=== PATIENT | female | born 1995 | race Caucasian/White ===

== ENCOUNTER → 2017-11-30 13:05 | Outpatient (REF) | payer MEDICAID, SELFPAY ==
[2017-12-02 17:14] LABS: Source: Passed Stone
== END ==
LOC: LBN 13:05
PROVIDERS: PCP Nurse Practitioner Family; Visit Provider Nurse Practitioner Family
DX: N20.0 Calculus of kidney (principal)
CPT/HCPCS: 82360

== ENCOUNTER 2018-04-27 18:47 | Emergency (ER) | payer OTHER, SELFPAY ==
[2018-04-27 18:49] VITALS: BP 123/66; PULSE 79; RESP 18; TEMP 36.4; O2SAT 100
--- NOTE | 2018-04-27 18:57 | W.ED.GENAD ---
Discharge Plan Disposition Patient Disposition: HOME Condition: Fair Discharge Details Chief Complaint: EarProblem Clinical Impression: Otitis media Primary Care Provider: Sakina Agustin ED Provider: Julee Dubois Home Meds and New Rx's Prescriptions: New amoxicillin-pot clavulanate [Augmentin] 875-125 mg tablet 1 tab PO BID Qty: 13 RF: 0 Continued levalbuterol tartrate [Xopenex HFA] 45 mcg/actuation HFA aerosol inhaler 2 inh Inhalation Q4H PRN (Reason: shortness of breath or wheezing) Qty: 15 RF: 6 albuterol sulfate 1.25 mg/3 mL solution for nebulization 1.25 mg IH Q4H PRN (Reason: shortness of breath or wheezing) Qty: 90 RF: 4 azithromycin [Zithromax Z-Honorio] 250 mg tablet See Rx Instructions PO .COMPLEX Qty: 6 RF: 0 epinephrine [EpiPen 2-Honorio] 0.3 MG/0.3 ML auto-injector 0.3 mg IM PRN Qty: 1 RF: 1 Advair Diskus 1 EACH blister with device 1 ea Inhalation BID Qty: 3 RF: 3 loratadine 10 MG tablet 10 mg PO QAM Qty: 90 RF: 3 sumatriptan succinate 50 MG tablet 50 mg PO ONCE MDD 200 PRNQty: 30 RF: 0 chlorpromazine 10 MG tablet 10 mg PO Q6H PRN Qty: 30 RF: 0 propranolol 20 MG tablet 20 mg PO TID Qty: 90 RF: 0 Discharge Instructions Instructions: Amoxicillin/Clavulanate Potassium (By mouth), Otitis Media (ED) Additional Instructions: Encourage hydration. Tylenol as needed for discomfort. Augmentin as prescribed for ear infection. Keep upcoming appointment with [facility]. If you develop fevers, ear discharge, increased pain or other new/worsening symptoms please seek care urgently once again. Referrals: Sakina Agustin, [employer]ELOPER [Primary Care Provider] - Medical Decision Making Patient is a 23-year-old female presenting today with chief complaint of left ear pain. Patient is 14 weeks gestation. She reports she has had bleeding throughout the course of her first trimester, this is unchanged at this time. States she is also experienced cramping throughout the first trimester continues into her second. No change in this. No abdominal pain on exam. She reports she was recently treated for pneumonia, finished her course of azithromycin approximately 3 weeks ago. Reports she has a slight lingering cough. Endorses chills. Left ear is notable for bulging tympanic membrane. External ears normal, no mastoid tenderness. Unable to obtain heart rate with Doppler. However, I did use ultrasound, difficulty obtaining a heart rate but was able to see a fluttering heart of the fetus which appeared consistent with gestational age. Patient was able to visualize as well. She has [employer] [employer] appointment beginning of next week. Patient will be treated for otitis media, will be treated with Augmentin. Encourage hydration. We discussed new/worsening symptoms when to seek care urgently once again. Advised to keep upcoming appointment next week. All of her questions and concerns were addressed and she is in agreement this plan. HPI General Mode of arrival: ambulatory. Date/Time Provider Initiated Documentation: 04/27/18 18:55. Limitations to Documentation: no limitations. Information obtained by: patient. History of Present Illness 23 year old F presents to the emergency department with the chief complaint of left ear pain, described as moderate, Quality is described as aching, Patient reports no radiation. Patient started experiencing this day(s) (4) and it has been constant. No relieving factors improve symptom(s), No exacerbating factors reported . Patient notes cough (reports improving cough after recent treatment for pneumonia), fever/chills (endorses chills, no documented fever) and nausea/vomiting (associates with ); denies chest pain, headaches, loss of appetite, rash and shortness of breath. Patient did receive the following treatments prior to arrival, other (Tylenol) Related Data Home Medications Medication Instructions Recorded Confirmed epinephrine [EpiPen 2-Honorio] 0.3 mg IM PRN #1 pack 08/06/12 03/21/18 Advair Diskus 1 ea INHALATION BID #3 dis.syr 02/25/14 03/21/18 loratadine 10 mg PO QAM #90 tab 02/25/14 03/21/18 chlorpromazine 10 mg PO Q6H PRN #30 tab-cap 07/14/17 03/21/18 propranolol 20 mg PO TID #90 tab-cap 07/14/17 03/21/18 sumatriptan succinate 50 mg PO ONCE PRN #30 tab-cap MDD 07/14/17 03/21/18 200 albuterol sulfate 1.25 mg/3 mL 1.25 mg IH Q4H PRN #90 ml 03/21/18 03/21/18 solution for nebulization azithromycin 250 mg tablet See Rx Instructions PO .COMPLEX #6 18 03/21/18 tab levalbuterol HFA 45 mcg/actuation 2 inh INHALATION Q4H PRN #15 gm 03/21/18 03/21/18 aerosol inhaler amoxicillin-pot clavulanate 1 tab PO BID #13 tab 04/27/18 [Augmentin] Previous Rx's Medication Instructions Recorded chlorpromazine 10 mg PO Q6H PRN #30 tab-cap 07/14/17 propranolol 20 mg PO TID #90 tab-cap 07/14/17 albuterol sulfate 1.25 mg/3 mL 1.25 mg IH Q4H PRN #90 ml 03/21/18 solution for nebulization azithromycin 250 mg tablet See Rx Instructions PO .COMPLEX #6 03/21/18 tab levalbuterol HFA 45 mcg/actuation 2 inh INHALATION Q4H PRN #15 gm 03/21/18 aerosol inhaler amoxicillin-pot clavulanate 1 tab PO BID #13 tab 04/27/18 [Augmentin] Allergies Allergy/AdvReac Type Severity Reaction Status Date / Time venom-honey bee Allergy Severe Anaphylaxsi Unverified 04/27/18 19:21 [bee venom (honey bee)] s topiramate Allergy Intermediate Skin Rash Unverified 04/27/18 19:21 amino acids [From Chromimin] Allergy Mild Other (See Unverified 04/27/18 19:21 Comment) chromium [From Chromimin] Allergy Mild Other (See Unverified 04/27/18 19:21 Comment) nickel Allergy Mild Rash Unverified 04/27/18 19:21 Environmental Allergy Mild Watery Uncoded 04/27/18 19:21 eyes, sneezing General Stated Complaint: EarProblem JOSE: 4 Review of Systems Constitutional Reports as per HPI, Reports chills, Denies fever(s), Denies headache(s) and Denies poor appetite Eyes Reports as per HPI, Denies eye discharge and Denies irritation ENT Reports as per HPI, Denies ear discharge, Reports otalgia, Denies headache(s), Denies nasal congestion, Denies nasal discharge, Denies sore throat, Denies throat swelling and Denies tongue swelling Cardiovascular Reports as per HPI, Denies chest pain and Denies dyspnea Respiratory Reports as per HPI, Reports cough and Denies dyspnea Gastrointestinal Reports as per HPI, Denies abdominal pain, Denies change in bowel habits, Reports nausea and Denies vomiting Genitourinary Reports as per HPI, Denies vaginal odor and Reports other (14 week gestation. ) Integumentary/Breasts Reports as per HPI and Denies rash Neurologic Denies headache(s) Allergic/Immunologic Denies throat swelling and Denies tongue swelling [facility] Medical History Alopecia Beta thalassemia Chiari malformation type I Depression GERD (gastroesophageal reflux disease) Tobacco use disorder Ureterolithiasis (11/28/17) Varicella infection Family History Grandmother Personal history of malignant neoplasm Social History number of children: 2 current occupational status: unemployed pets and animals: No Hx Recent Travel: No well-balanced diet: rarely or never frequency: daily Smoking/Tobacco Use Status: Current every day alcohol intake: current alcohol intake frequency: a few times a week substance use type: does not use Exam Const General: cooperative, healthy appearing, comfortable, no acute distress, well developed and well groomed Nutritional Appearance: average body habitus and well nourished Orientation: alert and awake [facility] Head: normal to inspection, normocephalic and atraumatic Ears: hearing grossly normal bilaterally, external ears normal, TM normal on the right, left TM abnormal (bulging left TM. No discharge or defect noted) and mastoids normal General nose exam: external nose normal and nares normal Face and sinus: normal facial exam, sinuses nontender and face symmetric Mouth: oral mucosae normal, lip normal, tongue normal, oropharynx normal and moist mucous membranes Teeth and gingiva: dentition normal Throat: posterior oropharynx normal, tonsils normal and uvula midline Eyes General: appearance normal, both eyes and all related structures Neck Neck: normal visual inspection, full ROM, no lymphadenopathy and no meningeal signs Resp Effort & Inspection: normal respiratory effort, able to speak in complete sentences and no respiratory distress Auscultation: clear to auscultation bilaterally, no rales, no rhonchi and no wheezes Cardio Rate: regular rate Rhythm: regular rhythm Heart Sounds: S1 normal and S2 normal GI Inspection: normal to inspection Skin General skin exam: no rashes or lesions noted Neuro General: alert and awake Cognition: normal cognition Speech: speech normal Gait: normal gait Psych Appearance: grossly normal and well kempt Mental Status: mental status grossly normal Speech and Movement: speech and movement normal Course Vital Signs Temperature 36.4 C L 04/27/18 18:49 Pulse 79 04/27/18 18:49 Respiratory Rate 18 04/27/18 18:49 Blood Pressure 123/66 04/27/18 18:49 Pulse Oximetry 100 04/27/18 18:49 Temperature 36.4 C L 04/27/18 18:49 Temperature Source Temporal Artery Scan 04/27/18 18:49 Pulse 79 04/27/18 18:49 Respiratory Rate 18 04/27/18 18:49 Respiratory Effort Non-Labored 04/27/18 18:52 Blood Pressure 123/66 04/27/18 18:49 Pulse Oximetry 100 04/27/18 18:49 Oxygen Delivery Method Room Air 04/27/18 18:49 Oxygen Flow Rate 0 04/27/18 18:49
[2018-04-27] MEDS: Amoxicillin 875/Clav. 125 TAB PO (19:34)
--- NOTE | 2018-04-27 19:40 | ED.GENADUL_ITS ---
Discharge Plan Disposition Patient Disposition: HOME Condition: Fair Discharge Details Chief Complaint: EarProblem Clinical Impression: Otitis media Primary Care Provider: Sakina Agustin ED Provider: Julee Dubois Home Meds and New Rx's Prescriptions: New amoxicillin-pot clavulanate [Augmentin] 875-125 mg tablet 1 tab PO BID Qty: 13 RF: 0 Continued levalbuterol tartrate [Xopenex HFA] 45 mcg/actuation HFA aerosol inhaler 2 inh Inhalation Q4H PRN (Reason: shortness of breath or wheezing) Qty: 15 RF: 6 albuterol sulfate 1.25 mg/3 mL solution for nebulization 1.25 mg IH Q4H PRN (Reason: shortness of breath or wheezing) Qty: 90 RF: 4 azithromycin [Zithromax Z-Honorio] 250 mg tablet See Rx Instructions PO .COMPLEX Qty: 6 RF: 0 epinephrine [EpiPen 2-Honorio] 0.3 MG/0.3 ML auto-injector 0.3 mg IM PRN Qty: 1 RF: 1 Advair Diskus 1 EACH blister with device 1 ea Inhalation BID Qty: 3 RF: 3 loratadine 10 MG tablet 10 mg PO QAM Qty: 90 RF: 3 sumatriptan succinate 50 MG tablet 50 mg PO ONCE MDD 200 PRNQty: 30 RF: 0 chlorpromazine 10 MG tablet 10 mg PO Q6H PRN Qty: 30 RF: 0 propranolol 20 MG tablet 20 mg PO TID Qty: 90 RF: 0 Discharge Instructions Instructions: Amoxicillin/Clavulanate Potassium (By mouth), Otitis Media (ED) Additional Instructions: Encourage hydration. Tylenol as needed for discomfort. Augmentin as prescribed for ear infection. Keep upcoming appointment with [facility] [employer] [facility] [facility]. If you develop fevers, ear discharge, increased pain or other new/worsening symptoms please seek care urgently once again. Referrals: Sakina Agustin, [employer] [Primary Care Provider] - Medical Decision Making Patient is a 23-year-old female presenting today with chief complaint of left ear pain. Patient is 14 weeks gestation. She reports she has had bleeding throughout the course of her first trimester, this is unchanged at this time. States she is also experienced cramping throughout the first trimester continues into her second. No change in this. No abdominal pain on exam. She reports she was recently treated for pneumonia, finished her course of azithromycin approximately 3 weeks ago. Reports she has a slight lingering cough. Endorses chills. Left ear is notable for bulging tympanic membrane. External ears normal, no mastoid tenderness. Unable to obtain heart rate with Doppler. However, I did use ultrasound, difficulty obtaining a heart rate but was able to see a fluttering heart of the fetus which appeared consistent with gestational age. Patient was able to visualize as well. She has [employer] appointment beginning of next week. Patient will be treated for otitis media, will be treated with Augmentin. Encourage hydration. We discussed new/worsening symptoms when to seek care urgently once again. Advised to keep upcoming appointment next week. All of her questions and concerns were addressed and she is in agreement this plan. HPI General Mode of arrival: ambulatory . Date/Time Provider Initiated Documentation: 04/27/18 18:55 . Limitations to Documentation: no limitations . Information obtained by: patient . History of Present Illness 23 year old F presents to the emergency department with the chief complaint of left ear pain, described as moderate, Quality is described as aching, Patient reports no radiation. Patient started experiencing this day(s) (4) and it has been constant. No relieving factors improve symptom(s), No exacerbating factors reported . Patient notes cough (reports improving cough after recent treatment for pneumonia), fever/chills (endorses chills, no documented fever) and nausea/vomiting (associates with ); denies chest pain, headaches, loss of appetite, rash and shortness of breath. Patient did receive the following treatments prior to arrival, other (Tylenol) Related Data Home Medications Medication Instructions Recorded Confirmed epinephrine [EpiPen 2-Honorio] 0.3 mg IM PRN #1 pack 08/06/12 03/21/18 Advair Diskus 1 ea INHALATION BID #3 dis.syr 02/25/14 03/21/18 loratadine 10 mg PO QAM #90 tab 02/25/14 03/21/18 chlorpromazine 10 mg PO Q6H PRN #30 tab-cap 07/14/17 03/21/18 propranolol 20 mg PO TID #90 tab-cap 07/14/17 03/21/18 sumatriptan succinate 50 mg PO ONCE PRN #30 tab-cap MDD 07/14/17 03/21/18 200 albuterol sulfate 1.25 mg/3 mL 1.25 mg IH Q4H PRN #90 ml 03/21/18 03/21/18 solution for nebulization azithromycin 250 mg tablet See Rx Instructions PO .COMPLEX #6 18 03/21/18 tab levalbuterol HFA 45 mcg/actuation 2 inh INHALATION Q4H PRN #15 gm 03/21/18 03/21/18 aerosol inhaler amoxicillin-pot clavulanate 1 tab PO BID #13 tab 04/27/18 [Augmentin] Previous Rx's Medication Instructions Recorded chlorpromazine 10 mg PO Q6H PRN #30 tab-cap 07/14/17 propranolol 20 mg PO TID #90 tab-cap 07/14/17 albuterol sulfate 1.25 mg/3 mL 1.25 mg IH Q4H PRN #90 ml 03/21/18 solution for nebulization azithromycin 250 mg tablet See Rx Instructions PO .COMPLEX #6 03/21/18 tab levalbuterol HFA 45 mcg/actuation 2 inh INHALATION Q4H PRN #15 gm 03/21/18 aerosol inhaler amoxicillin-pot clavulanate 1 tab PO BID #13 tab 04/27/18 [Augmentin] Allergies Allergy/AdvReac Type Severity Reaction Status Date / Time venom-honey bee Allergy Severe Anaphylaxsi Unverified 04/27/18 19:21 [bee venom (honey bee)] s topiramate Allergy Intermediate Skin Rash Unverified 04/27/18 19:21 amino acids [From Chromimin] Allergy Mild Other (See Unverified 04/27/18 19:21 Comment) chromium [From Chromimin] Allergy Mild Other (See Unverified 04/27/18 19:21 Comment) nickel Allergy Mild Rash Unverified 04/27/18 19:21 Environmental Allergy Mild Watery Uncoded 04/27/18 19:21 eyes, sneezing General Stated Complaint: EarProblem JOSE: 4 Review of Systems Constitutional Reports as per HPI, Reports chills, Denies fever(s), Denies headache(s) and Denies poor appetite Eyes Reports as per HPI, Denies eye discharge and Denies irritation ENT Reports as per HPI, Denies ear discharge, Reports otalgia, Denies headache(s), Denies nasal congestion, Denies nasal discharge, Denies sore throat, Denies throat swelling and Denies tongue swelling Cardiovascular Reports as per HPI, Denies chest pain and Denies dyspnea Respiratory Reports as per HPI, Reports cough and Denies dyspnea Gastrointestinal Reports as per HPI, Denies abdominal pain, Denies change in bowel habits, Reports nausea and Denies vomiting Genitourinary Reports as per HPI, Denies vaginal odor and Reports other (14 week gestation. ) Integumentary/Breasts Reports as per HPI and Denies rash Neurologic Denies headache(s) Allergic/Immunologic Denies throat swelling and Denies tongue swelling [facility] Medical History Alopecia Beta thalassemia Chiari malformation type I Depression GERD (gastroesophageal reflux disease) Tobacco use disorder Ureterolithiasis (11/28/17) Varicella infection Family History Grandmother Personal history of malignant neoplasm Social History number of children: 2 current occupational status: unemployed pets and animals: No Hx Recent Travel: No well-balanced diet: rarely or never frequency: daily Smoking/Tobacco Use Status: Current every day alcohol intake: current alcohol intake frequency: a few times a week substance use type: does not use Exam Const General: cooperative, healthy appearing, comfortable, no acute distress, well developed and well groomed Nutritional Appearance: average body habitus and well nourished Orientation: alert and awake [facility] [place] Head: normal to inspection, normocephalic and atraumatic Ears: hearing grossly normal bilaterally, external ears normal, TM normal on the right, left TM abnormal (bulging left TM. No discharge or defect noted) and mastoids normal General nose exam: external nose normal and nares normal Face and sinus: normal facial exam, sinuses nontender and face symmetric Mouth: oral mucosae normal, lip normal, tongue normal, oropharynx normal and moist mucous membranes Teeth and gingiva: dentition normal Throat: posterior oropharynx normal, tonsils normal and uvula midline Eyes General: appearance normal, both eyes and all related structures Neck Neck: normal visual inspection, full ROM, no lymphadenopathy and no meningeal signs Resp Effort & Inspection: normal respiratory effort, able to speak in complete sentences and no respiratory distress Auscultation: clear to auscultation bilaterally, no rales, no rhonchi and no wheezes Cardio Rate: regular rate Rhythm: regular rhythm Heart Sounds: S1 normal and S2 normal GI Inspection: normal to inspection Skin General skin exam: no rashes or lesions noted Neuro General: alert and awake Cognition: normal cognition Speech: speech normal Gait: normal gait Psych Appearance: grossly normal and well kempt Mental Status: mental status grossly normal Speech and Movement: speech and movement normal Course Vital Signs Temperature 36.4 C L 04/27/18 18:49 Pulse 79 04/27/18 18:49 Respiratory Rate 18 04/27/18 18:49 Blood Pressure 123/66 04/27/18 18:49 Pulse Oximetry 100 04/27/18 18:49 Temperature 36.4 C L 04/27/18 18:49 Temperature Source Temporal Artery Scan 04/27/18 18:49 Pulse 79 04/27/18 18:49 Respiratory Rate 18 04/27/18 18:49 Respiratory Effort Non-Labored 04/27/18 18:52 Blood Pressure 123/66 04/27/18 18:49 Pulse Oximetry 100 04/27/18 18:49 Oxygen Delivery Method Room Air 04/27/18 18:49 Oxygen Flow Rate 0 04/27/18 18:49
== END 2018-04-27 19:38 | disposition home or self-care (01) ==
PROVIDERS: Emergency Provider Physician Assistant; PCP Nurse Practitioner Family
DX: O99.89 Other specified diseases and conditions complicating pregnancy, childbirth and the puerperium (principal); H66.92 Otitis media, unspecified, left ear; Z3A.14 14 weeks gestation of pregnancy
CPT/HCPCS: 99283

== ENCOUNTER 2019-01-15 07:44 | Emergency (ER) | payer MEDICAID, SELFPAY ==
[2019-01-15 07:48] VITALS: BP 117/63; PULSE 70; RESP 16; TEMP 36.6; O2SAT 98
--- NOTE | 2019-01-15 08:08 | W.ED.GENAD ---
Discharge Plan Disposition Patient Disposition: HOME Condition: Stable Discharge Details Chief Complaint: Orthopedic Clinical Impression: Right wrist sprain Primary Care Provider: Sakina Agustin ED Provider: Tong Laboy Home Meds and New Rx's Prescriptions: Continued levalbuterol tartrate [Xopenex HFA] 45 mcg/actuation HFA aerosol inhaler 2 inh Inhalation Q4H PRN (Reason: shortness of breath or wheezing) Qty: 15 RF: 6 albuterol sulfate 1.25 mg/3 mL solution for nebulization 1.25 mg IH Q4H PRN (Reason: shortness of breath or wheezing) Qty: 90 RF: 4 epinephrine [EpiPen 2-Honorio] 0.3 MG/0.3 ML auto-injector 0.3 mg IM PRN Qty: 1 RF: 1 fluticasone propion-salmeterol [Advair Diskus] 1 EACH blister with device 1 ea Inhalation BID Qty: 3 RF: 3 loratadine 10 MG tablet 10 mg PO QAM Qty: 90 RF: 3 escitalopram oxalate [Lexapro] 10 mg tablet 40 mg PO DAILY RF: 0 Discharge Instructions Instructions: Wrist Sprain (ED) Additional Instructions: Immobilized and provided splint for 7 to 14 days time. If you have moderate persistent pain at 10 days time, as we discussed you should have a repeat x-ray. Remove and ice 20 minutes at a time 5-6 times daily. Tylenol as needed for pain. Return for worsening discomfort, numbness of the digits, or any other acute concern. Medical Decision Making 23-year-old female with right wrist pain after fall yesterday at home on outstretched hand She has a swollen and diffusely tender right wrist on exam. Also notable for diminished sensation on the volar surface of the index, ring and fifth digit. In testing with two-point, the patient has difficulty appreciating 2 cm two-point discrimination on unaffected skin as well as affected skin. Her two-point discrimination is 2 cm throughout. Ice placed and patient referred for x-ray. A ring was removed from the fourth digit. No evidence of bony fracture. Will place in a removable Velcro splint. She understands to return for worsening numbness, increasing pain, pain that persist beyond 10 days. She will immobilize, rest, ice the affected joint for 7 to 10 days time. Return precautions discussed. Consistent with right wrist sprain. HPI General Mode of arrival: ambulatory. Date/Time Provider Initiated Documentation: 01/15/19 07:58. Limitations to Documentation: no limitations. Information obtained by: patient. History of Present Illness 23 year old F presents to the emergency department with the chief complaint of Mild right wrist pain, described as moderate, Quality is described as dull, and is localized to the right and upper extremity. Patient reports no radiation. Patient started experiencing this hour(s) and it has been constant. Rest improves symptom(s), Movement worsens symptoms . Patient notes other (Swelling, pain with movement). Patient did receive the following treatments prior to arrival, NSAID Related Data Home Medications Medication Instructions Recorded Confirmed epinephrine [EpiPen 2-Honorio] 0.3 mg IM PRN #1 pack 08/06/12 01/15/19 fluticasone propion-salmeterol 1 ea INHALATION BID #3 dis.syr 02/25/14 01/15/19 [Advair Diskus] loratadine 10 mg PO QAM #90 tab 02/25/14 01/15/19 albuterol sulfate 1.25 mg/3 mL 1.25 mg IH Q4H PRN #90 ml 03/21/18 01/15/19 solution for nebulization levalbuterol tartrate 45 2 inh INHALATION Q4H PRN #15 gm 03/21/18 01/15/19 mcg/actuation aerosol inhaler escitalopram oxalate 10 mg tablet 40 mg PO DAILY 06/26/18 01/15/19 Previous Rx's Medication Instructions Recorded albuterol sulfate 1.25 mg/3 mL 1.25 mg IH Q4H PRN #90 ml 03/21/18 solution for nebulization levalbuterol tartrate 45 2 inh INHALATION Q4H PRN #15 gm 03/21/18 mcg/actuation aerosol inhaler Allergies Allergy/AdvReac Type Severity Reaction Status Date / Time venom-honey bee Allergy Severe Anaphylaxsi Unverified 01/15/19 07:52 [bee venom (honey bee)] s topiramate Allergy Intermediate Skin Rash Unverified 01/15/19 07:52 amino acids [From Chromimin] Allergy Mild Other (See Unverified 01/15/19 07:52 Comment) chromium [From Chromimin] Allergy Mild Other (See Unverified 01/15/19 07:52 Comment) nickel Allergy Mild Rash Unverified 01/15/19 07:52 Environmental Allergy Mild Watery Uncoded 01/15/19 07:52 eyes, sneezing General Stated Complaint: Orthopedic JOSE: 4 Review of Systems Review of Systems Narrative: No other injury. Denies elbow, shoulder, back, neck pain. She has otherwise been well. 4 systems reviewed and negative. [facility] Medical History Alopecia Beta thalassemia Chiari malformation type I Depression GERD (gastroesophageal reflux disease) Tobacco use disorder Ureterolithiasis (11/28/17) (L) UVJ passed spontaneously Varicella infection Age 2 or 3 Family History Grandmother Personal history of malignant neoplasm breast CA Social History Smoking/Tobacco Use Status: Current every day Alcohol Intake: current Alcohol Intake frequency: a few times a week Drug use: Never Substance use type: does not use Number of Children: 2 Pets and animals: No Sexually active: No Current gender identity: female What type of physical activity do you participate in: walking Frequency: daily Do you feel safe at home: Yes Do you feel safe in your relationship?: Yes Exam Narrative Exam Narrative: GEN: awake, alert, oriented 3. Pleasant, well groomed, interactive. HEAD: Normocephalic, atraumatic ENT: Mucous membranes dry EYES: PERRL, EOMI NECK: Full ROM, no KRISSY, no menigismus CHEST/RESP: Nontender CARDIOVASCULAR: RRR, no murmur, rub jania. 2+ Rad pulse bilateral Back: Nontender EXT: Full ROM, range of motion is limited right wrist. The right wrist is swollen, diffusely tender. There is 2+ radial pulse present. There is diminished sensation on the volar pad of the fourth and fifth digit as well as index finger. Otherwise normal sensation. Pain with supination. Neuro: Grossly normal neurologic exam, conversant, interactive. Psych: Speech fluent, thoughts congruent, affect normal Course Vital Signs Vital signs: Vital Signs Temperature 36.6 C 01/15/19 07:48 Pulse 70 01/15/19 07:48 Respiratory Rate 16 01/15/19 07:48 Blood Pressure 117/63 01/15/19 07:48 Pulse Oximetry 98 01/15/19 07:48 Temperature 36.6 C 01/15/19 07:48 Temperature Source Skin 01/15/19 07:48 Pulse 70 01/15/19 07:48 Respiratory Rate 16 01/15/19 07:48 Respiratory Effort 01/15/19 07:55 Blood Pressure 117/63 01/15/19 07:48 Blood Pressure Position Sitting 01/15/19 07:48 Pulse Oximetry 98 01/15/19 07:48 Oxygen Delivery Method Room Air 01/15/19 07:48 Oxygen Flow Rate 0 01/15/19 07:48 Pain Level 8 01/15/19 07:54
--- NOTE | 2019-01-15 08:18 | DI.RAD_ITS ---
EXAM: XR WRIST RT COMPLETE INDICATION: pain after fall. COMPARISON: No exams were available for comparison TECHNIQUE: 2D digital imaging was performed. FINDINGS: Four views were obtained. Carpal alignment is normal. No evidence of fracture. IMPRESSION:
== END 2019-01-15 08:30 | disposition home or self-care (01) ==
PROVIDERS: Emergency Provider Emergency Medicine; PCP Nurse Practitioner Family
DX: S63.501A Unspecified sprain of right wrist, initial encounter (principal); W01.0XXA Fall on same level from slipping, tripping and stumbling without subsequent striking against object, initial encounter
CPT/HCPCS: 29125; 99283; 73110; 99282; L3908

== ENCOUNTER 2019-07-28 13:06 | Emergency (ER) | payer MEDICAID, SELFPAY ==
[2019-07-28 13:15] VITALS: BP 125/85; PULSE 106; RESP 18; TEMP 36.2; O2SAT 99
--- NOTE | 2019-07-28 13:45 | DI.CT_ITS ---
EXAM: CT ABDOMEN PELVIS W CLINICAL HISTORY: right flank and RUQ pain; c/o renal obst/cholecyst TECHNIQUE: Imaging Protocol: Axial computed tomography images with coronal and sagittal reformatted images were created and reviewed CONTRAST MATERIAL: Intravenous: Omnipaque 350 Contrast volume:100 mL Oral: No COMPARISON: UPPER ABD WITHOUT CONTRAST from 06/01/2009 FINDINGS: ABDOMEN: Lung Bases: Normal where visualized. Liver: Diffuse fatty infiltration. No measurable mass. Hepatomegaly. Portal, Superior Mesenteric, and Splenic Veins: Unremarkable. Gallbladder and Biliary Tract: No radiodense calculus or dilation. Pancreas: Normal density, no abnormal calcifications or inflammatory process. Spleen: Normal. Mild splenomegaly. Adrenals: No masses seen. Kidneys: Normal size, contour and axis. No radiodense stones or obstructive uropathy. No masses seen. Abdominal Aorta: Abdominal portion non-dilated. Bowel: No obstruction or bowel wall thickening. Appendix is unremarkable. Peritoneal Cavity: No ascites, collection or mesenteric inflammatory response. Lymph Nodes: Within normal limits. Bones: Unremarkable. Soft Tissues: Unremarkable. PELVIS: Bladder: Symmetric distention, no gross wall thickening. Reproductive Organs: Unremarkable as visualized. Small cysts seen on the right ovary. The largest me asures 2.5 cm. Lymph Nodes: Within normal limits. Bones: Within normal limits. IMPRESSION: 1. No acute abdominal or pelvic process. 2. Fatty infiltration of the liver. Mild hepatosplenomegaly. RADIATION DOSE DELIVERED: Total DLP DATA REPOSITORY: All CT scans at this facility are submitted to the National Radiology Data Registry (NRDR) Dose Index Registry (DIR) with the [employer] ([employer]). RADIATION OPTIMIZATION: All CT scans at this facility use at least one of these dose optimization te chniques: automated exposure control; mA and/or kV adjustment per patient size (includes targeted exa ms where dose is matched to clinical indication); or iterative reconstruction.
[2019-07-28 14:03] LABS: Abs Immature Grans 0.03 k/cumm (0.0-0.09); Absolute Basophil Count 0.03 k/cumm (0.0-0.2); Absolute Eosinophil Count 0.15 k/cumm (0.0-0.7); Absolute Lymphocyte Count 2.06 k/cumm (1.2-3.4); Absolute Monocyte Count 0.88 k/cumm (0.11-0.7); Absolute Neutrophil Count 5.84 k/cumm (1.2-6.7); Basophils % 0.3; Eosinophils % 1.7; HCT 39.4 % (36.0-46.0); Immature Grans % 0.3 %; Lymphocytes % 22.9; Mean Corpuscular Hemoglobin 20.7 pg (27.0-33.0); Mean Corpuscular Volume 62.7 fL (80-95); Mean Platelet Volume 10.6 fL (8.0-11.0); Monocytes % 9.8; Platelet Count 306 x1000/uL (130-400); RBC 6.28 m/cumm (4.00-5.20); RBC Distribution Width 18.7 % (11.7-14.6); White Blood Cell Count 8.99 k/cumm (4.4-10.8)
[2019-07-28] MEDS: Normal Saline 1,000 ML 1000 ML IV (14:10)
[2019-07-28] MEDS: Ondansetron 4 MG/2 ML VIAL IVP (14:12)
[2019-07-28 14:13] LABS: Lactate 1.1 mmol/L (0.6-1.4)
[2019-07-28 14:17] LABS: Bilirubin Negative (Negative); Blood Negative (Negative); Clarity Sl Cloudy (Clear); Glucose Negative (Negative); Ketones Negative (Negative); Leukocyte Esterase Negative (Negative); Nitrite Negative (Negative); Specific Gravity >= 1.030 (1.005-1.025); Urobilinogen 0.2 EU/dL (Up TO 0.2); pH 5.5 (5-8)
[2019-07-28 14:22] LABS: Anisocytosis 1+; Diff Comment RBC Morph Reviewed
[2019-07-28 14:23] LABS: ALT 57 U/L (14-59); AST 30 U/L (15-37); Albumin 3.9 g/dL (3.4-5.0); Alkaline Phosphatase 85 U/L (46-116); Anion Gap 13.2 mmol/L (3-11); BUN 11 mg/dL (7-18); Bilirubin, Total 0.4 mg/dL (0.2-1.0); CO2 22.8 mmol/L (21.0-32.0); Calcium 8.9 mg/dL (8.5-10.1); Chloride 102 mmol/L (98-107); Glucose 99 mg/dL (74-106); Microcytosis 3+; Poikilocytes 1+; Potassium 3.8 mmol/L (3.5-5.1); Sodium 138 mmol/L (136-145)
[2019-07-28] MEDS: Omnipaque 350 MG/ML 100 ML BTL IJ (14:38)
[2019-07-28 14:43] LABS: Bacteria Moderate HPF (Negative); Casts Negative LPF (Negative); Crystals Many Calcium Oxalate HPF (Negative); Epithelial Cells Moderate HPF (Negative); Mucus Moderate (Negative); RBC Negative HPF (0-2); WBC Negative HPF (0-5)
[2019-07-28 14:44] LABS: C & S Indicated? C&S Done As Ordered
--- NOTE | 2019-07-28 14:53 | DI.VRAD_ITS ---
PROCEDURE INFORMATION: Exam: CT Abdomen And Pelvis With Contrast Exam date and time: 07/28/2019 1:57 PM Age: 24 years old Clinical indication: Abdominal pain; Patient HX: Chronic kidney infection, known gallstones TECHNIQUE: Imaging protocol: Computed tomography of the abdomen and pelvis with intravenous contrast. COMPARISON: No relevant prior studies available. FINDINGS: Mild splenomegaly. No definite radiopaque gallstones. Appendix is normal. Otherwise normal appearing solid organs. No intestinal obstruction. No obstructive uropathy. No free fluid. No free air. No inflammatory changes. IMPRESSION: Incidental splenomegaly with no specific etiology identified for the patient's symptoms. Dictated and Authenticated by: Bandar Powell MD. Ordering:MARIJA Anne MD
[2019-07-28 16:05] VITALS: BP 112/61; BP 115/61; BP 137/74; PULSE 78; PULSE 85; PULSE 92
[2019-07-28 16:39] VITALS: BP 137/74; PULSE 76; TEMP 36.6; O2SAT 100
[2019-07-28] MEDS: Ondansetron O.D.T. 4 MG TABEF, 3 TABS/BTL PO (16:41)
--- NOTE | 2019-07-28 16:56 | ED.GENADUL_ITS ---
Discharge Plan Disposition Patient Disposition: HOME Condition: Stable Discharge Details Chief Complaint: GenMedical Clinical Impression: Abdominal pain with vomiting, Acute flank pain Primary Care Provider: Sakina Agustin ED Provider: Dayana Crespo Home Meds and New Rx's Prescriptions: No Action levalbuterol tartrate [Xopenex HFA] 45 mcg/actuation HFA aerosol inhaler 2 inh Inhalation Q4H PRN (Reason: shortness of breath or wheezing) Qty: 15 RF: 6 albuterol sulfate 1.25 mg/3 mL solution for nebulization 1.25 mg IH Q4H PRN (Reason: shortness of breath or wheezing) Qty: 90 RF: 4 epinephrine [EpiPen 2-Honorio] 0.3 MG/0.3 ML auto-injector 0.3 mg IM PRN Qty: 1 RF: 1 fluticasone propion-salmeterol [Advair Diskus] 1 EACH blister with device 1 ea Inhalation BID Qty: 3 RF: 3 loratadine 10 MG tablet 10 mg PO QAM Qty: 90 RF: 3 escitalopram oxalate [Lexapro] 10 mg tablet 40 mg PO DAILY RF: 0 Discharge Instructions Instructions: Abdominal Pain (ED), Flank Pain (ED) Additional Instructions: Drink plenty of fluids. Use Zofran as prescribed for nausea every 8 hours if needed. Continue Keflex as previously prescribed. We will follow-up with urine culture. Rest activities as tolerated. Have stool testing as discussed, drop off sample with lab. Follow-up with outpatient ultrasound. Recheck with PCP for any persistence of your symptoms. Return for any worsening, concerns or alarming symptoms if needed sooner. Medical Decision Making Is a very pleasant 24-year-old patient presenting to the emergency room for complaints of 1-1/2 to 2 weeks of right flank pain. Patient reports she had onset of right flank pain associated with hematuria and chills which lasted approximately 3 to 4 days then she reached out to her primary care doctor who prescribed a course of Bactrim. Patient reports 3-day course of Bactrim fully relieved her symptoms. Patient reports symptomatic relief for several days then had onset of return of right-sided flank pain. Patient reports after 2 days of flank pain she developed a fever greater than 101. Patient reports she had subsequent development of nausea and vomiting. Patient reports several episodes of vomiting in the last 2 days. She did reach out to her PCP who prescribed a course of Keflex. Patient reports she has been unable to hold down the Keflex due to vomiting. Patient does report associated diarrhea described as green and foamy. Patient reports persistent right flank pain which has now radiated toward the right upper quadrant of the abdomen. Patient is very familiar with kidney infections as she reports approximately 3-4 kidney infections per year. Patient reports this is somewhat atypical of her kidney infections due to the vomiting which is present in addition to the right upper quadrant pain. Patient reports she has known gallstones which is been noted on previous imaging studies. Patient questions whether this is related to her gallbladder. Patient reports she is feeling dehydrated as she has vomited for 2 days and has been unable to to hold down fluids. Patient denies associated dysuria, urgency, frequency or hematuria when urinating. Patient does report mild dizziness when standing. Initial evaluation of the patient reveals mild tachycardia on vital signs otherwise vital signs are normal patient is afebrile. Mild dry mucous membranes noted orally. Patient is breathing easily has no increase in respiratory effort. Patient has no wheezing, rhonchi or rales on exam. Patient has mild right CVA tenderness. Patient does have notable right upper quadrant tenderness on exam but lacks peritoneal signs, rebound or guarding. Bowel sounds are present in all 4 quadrants. No significant suprapubic tenderness noted on exam. Given patient's initial presentation we will plan to check CT of her abdomen with IV contrast. We will plan to look for any indication of obstruction of the kidney. Will check urinalysis as well as baseline labs including blood cultures and lactate to be sure there is no evidence of urosepsis given her recent urinary tract infection. We will plan to rehydrate this patient with 1 L of normal saline then recheck vitals. Patient agrees with this plan of care. Patient lacks concern for Covid or exposures. Offered pain medication. Patient declines at this time. Patient drove herself to the emergency room today. EKG performed to provide Zofran IV as patient is on citalopram. Patient's QTC is noted to be 423. Patient has an EKG revealing normal sinus rhythm with a heart rate of 100. No ST segment changes. Will provide patient Zofran for symptomatic relief. Patient's labs reveal no leukocytosis. Patient is elevated red blood cells and is known to have thalassemia. Patient's electrolytes within normal limit. Mild elevation of patient's anion gap. We will plan to rehydrate. Patient's LFTs and bilirubin are normal. Patient's lactate noted to be 1.1. Urinalysis inconsistent with urinary tract infection at this time. We will plan to obtain urine culture with new sample given epithelial cells present. Patient's nausea is improved. CT of abdomen and pelvic reveals FINDINGS: Mild splenomegaly. No definite radiopaque gallstones. Appendix is normal. Otherwise normal appearing solid organs. No intestinal obstruction. No obstructive uropathy. No free fluid. No free air. No inflammatory changes. IMPRESSION: Incidental splenomegaly with no specific etiology identified for the patient's symptoms. Patient has received 1 L of IV fluid, does feel improved. Dizziness is resolved on standing. We will plan to obtain C. difficile to be sure patient's bowel changes are not related to recent antibiotic use. After discussion with the patient she does prefer to take Keflex previously prescribed given her history of kidney infection and similar flank pain she is experiencing. Patient made aware of urinalysis results but recommended urine culture. Patient agrees with this plan of care for follow-up. Given patient's concern of her gallbladder and right upper quadrant pain on exam we will plan to reevaluate with ultrasound tomorrow. Patient agrees with this plan of care. Patient's vital signs improved with hydration. Patient remains afebrile. Patient provided Zofran for symptomatic relief. Patient feels hydrated at this time. Does report some symptomatic relief and is requesting discharge home at this time. Patient made aware of return precautions. The patient was stable and requested discharge. Prior to discharge, my usual and customary return precautions were reviewed with the patient - this included follow-up instructions and reasons to return to the Emergency Department if conditions worsens, does not improve as expected, or other new concerns arise. HPI General Date/Time Provider Initiated Documentation: 07/28/19 13:19 . HPI Narrative: This a 24-year-old patient presenting to the emergency room for complaints of flank pain associated with hematuria as well as chills which began approximately 1-1/2 weeks ago. Patient experienced 3 days of hematuria, right-sided flank pain and had onset of chills. She reached out to her PCP who prescribed a course of Bactrim. Patient was compliant with 3 days of Bactrim which fully relieved her symptoms. Urine became clear in color, had no associated dysuria, flank pain and chills had entirely relieved. Patient reports she was feeling well for approximately 3 to 4 days, patient had return of onset of right flank pain as well as onset of fever in the last 3 days. Patient reports she again reached out to her primary care doctor who prescribed a course of Keflex p.o. P atient picked up the medication yesterday. Tried taking the medication and began vomiting. Patient reports unable to hold down antibiotic due to vomiting. Patient reports persistent febrile sensation. Patient reports persistent right flank pain. Patient does report the flank pain at this time has began to radiate toward the anterior abdomen in the right upper quadrant. Patient denies any cough, difficulty breathing or shortness of breath or wheezing. Denies any chest pain. Denies any headache. She does report mild dizziness is at this time she is feeling quite dehydrated. Patient also is reporting several episodes of vomiting in the last 2 days. Patient is also reporting diarrhea in the last 2 days. Patient reports diarrhea is described as green and foam-like. No significant odor noted. Denies any blood in vomitus or bowel movement. At this time patient is predominantly complaining of right-sided flank pain with radiation to the abdomen as well as dizziness and concern of dehydration. Patient denies any dysuria, urgency or hematuria. Patient is very familiar with pyelonephritis as she has had multiple kidney infections in the past patient estimates approximately 3-4 kidney infections per year. Patient reports this is somewhat atypical of her kidney infections as she is not typically vomiting. Patient denies any obvious covert exposures. Patient reports no family members with similar symptoms. Patient reports a history of known gallstones and is concerned if the radiation of her pain toward her anterior abdomen is related to her gallbladder. Related Data Home Medications Medication Instructions Recorded Confirmed epinephrine [EpiPen 2-Honorio] 0.3 mg IM PRN #1 pack 08/06/12 07/28/19 fluticasone propion-salmeterol 1 ea INHALATION BID #3 dis.syr 02/25/14 07/28/19 [Advair Diskus] loratadine 10 mg PO QAM #90 tab 02/25/14 07/28/19 albuterol sulfate 1.25 mg/3 mL 1.25 mg IH Q4H PRN #90 ml 03/21/18 07/28/19 solution for nebulization levalbuterol tartrate 45 2 inh INHALATION Q4H PRN #15 gm 03/21/18 07/28/19 mcg/actuation aerosol inhaler escitalopram oxalate 10 mg tablet 40 mg PO DAILY 06/26/18 07/28/19 Previous Rx's Medication Instructions Recorded albuterol sulfate 1.25 mg/3 mL 1.25 mg IH Q4H PRN #90 ml 03/21/18 solution for nebulization levalbuterol tartrate 45 2 inh INHALATION Q4H PRN #15 gm 03/21/18 mcg/actuation aerosol inhaler Allergies Allergy/AdvReac Type Severity Reaction Status Date / Time venom-honey bee Allergy Severe Anaphylaxsi Unverified 07/28/19 13:19 [bee venom (honey bee)] s topiramate Allergy Intermediate Skin Rash Unverified 07/28/19 13:19 amino acids [From Chromimin] Allergy Mild Other (See Unverified 07/28/19 13:19 Comment) chromium [From Chromimin] Allergy Mild Other (See Unverified 07/28/19 13:19 Comment) nickel Allergy Mild Rash Unverified 07/28/19 13:19 Environmental Allergy Mild Watery Uncoded 07/28/19 13:19 eyes, sneezing General Stated Complaint: GenMedical JOSE: 3 Review of Systems All systems reviewed & are unremarkable except as noted in HPI and below Constitutional Constitutional: Denies chills, Reports fatigue, Reports fever(s), Denies h eadache(s) and Reports malaise ENT Ears, Nose, Mouth, and Throat: Denies headache(s), Denies sinus pain, Denies sinus pressure and Denies sore throat Cardiovascular Cardiovascular: Denies chest pain, Denies diaphoresis, Denies leg edema and Denies dyspnea Respiratory Respiratory: Denies cough, Denies dyspnea and Denies wheezing Gastrointestinal Gastrointestinal: Reports abdominal pain (Right upper quadrant), Reports diarrhea, Reports nausea and Reports vomiting Genitourinary Genitourinary: Denies hematuria, Denies difficulty voiding, Denies dysuria and Denies urinary urgency Neurologic Neurologic: Denies headache(s) Endocrine Endocrine: Reports fatigue Allergic/Immunologic Allergic/Immunologic: Denies wheezing [facility] Medical History (Updated 07/28/19 @ 16:17 by TESS Amanda) Allergic reaction to bee sting (Inactive) Alopecia (Chronic 03/28/13) Asthma (Chronic 05/23/13) 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) Chiari malformation type I [place]Chronic [place]14/17[place] [facility] [place] no surgery at this time Depression (Chronic) Dyshidrotic eczema (Chronic 02/24/14) Gastroesophageal reflux disease (Chronic 05/23/13) Hiatal hernia; long-term Rx Dexilant Headache (Chronic 05/23/13) Tobacco use disorder (Chronic) Ureterolithiasis (Resolved 11/28/17) (L) UVJ passed spontaneously Varicella infection (Resolved) Age 2 or 3 Social History Smoking/Tobacco Use Status: Current every day Tobacco Type: cigarettes Alcohol Intake: current Alcohol Intake frequency: a few times a week Drug use: Never Substance use type: does not use Number of Children: 2 Pets and animals: No Sexually active: No Current gender identity: female What type of physical activity do you participate in: walking Frequency: daily Do you feel safe at home: Yes Do you feel safe in your relationship?: Yes Exam Narrative Exam Narrative: CONST: Healthy appearing patient, in no acute distress. Mild dry mucous membranes. Alert and oriented. HENMT: Head nomocephalic, normal to inspection. Atraumatic. Hearing grossly normal. External ear canal no erythema or swelling. TM normal bilaterally. Nose normal to inspection. No rhinnorhea. Normal facial exam. Oral mucosa normal. Tounge normal. Dentition normal. Normal posterior oropharynx. Uvula midline. EYES: General normal appearance. Alignment normal. Eyelids normal. Conjunctiva normal. Sclera normal. PERRL. NECK: Normal visual inspection. FROM. No lymphadenopathy. Trachea midline. No Midline tenderness. CHEST: Normal insepection of the chest. RESP: Normal respiratory effort. Speaking full sentences. No cough. No wheezing. No retractions. Clear to auscaltation. Breath sound equal and present bilaterally. CARDIO: No JVD. Normal PMI. Regular Rate. Regular Rhythm. Normal peripheral pulses. GI: Normal inspection of abdomen. No distension. Soft. Mild right upper quadrant tenderness present. Bowel sounds present in all 4 quadrants. No reboun d. No gaurding. No peritoneal signs. MUSCULOSKELETAL: Normal Gait. FROM of all extremities. Distal neurovascularly intact. Sensation intact distally. Back; mild right CVA tenderness present. No left CVA tenderness SKIN: Normal. Dry. No rashes. NEURO: Alert and awake. Speech clear. PSYCH: Normal affect. Cooperative. Course Vital Signs Vital signs: Vital Signs Temperature 36.2 C L 07/28/19 13:15 Pulse 106 H 07/28/19 13:15 Respiratory Rate 18 07/28/19 13:15 Blood Pressure 125/85 07/28/19 13:15 Pulse Oximetry 99 07/28/19 13:15 Temperature 36.6 C 07/28/19 16:39 Pulse 76 07/28/19 16:39 Respiratory Rate 18 07/28/19 13:15 Respiratory Effort Non-Labored 07/28/19 13:21 Respiratory Depth Normal 07/28/19 13:21 Respiratory Pattern Normal 07/28/19 13:21 Blood Pressure 137/74 07/28/19 16:39 Blood Pressure Position Sitting 07/28/19 13:15 Pulse Oximetry 100 07/28/19 16:39 Oxygen Delivery Method Room Air 07/28/19 13:15 Oxygen Flow Rate 0 07/28/19 13:15 Pain Level 7 07/28/19 13:15 Lab/Test Results Lab/Test Results: 07/28/19 16:25 Urine - Voided Urine Culture - Pending 07/28/19 15:50 Stool Clostridioides difficile Screen - Pending 07/28/19 15:20 Blood Blood Culture - Pending 07/28/19 14:50 Blood Blood Culture - Pending Laboratory Tests Range/Units 07/28/19 07/28/19 07/28/19 13:51 13:51 13:51 WBC (4.4-10.8) k/cumm 8.99 RBC (4.00-5.20) m/cumm 6.28 H Hgb (12.0-15.5) g/dL 13.0 Hct (36.0-46.0) % 39.4 MCV (80-95) fL 62.7 L MCH (27.0-33.0) pg 20.7 L MCHC (32.0-36.0) g/dL 33.0 RDW (11.7-14.6) % 18.7 H Plt Count (130-400) x1000/uL 306 MPV (8.0-11.0) fL 10.6 Immature Gran % % 0.3 Neutrophils % 65.0 Lymphocytes % 22.9 Monocytes % 9.8 Eosinophils % 1.7 Basophils % 0.3 Absolute Neutrophils (1.2-6.7) k/cumm 5.84 Absolute Lymphocytes (1.2-3.4) k/cumm 2.06 Absolute Monocytes (0.11-0.7) k/cumm 0.88 H Absolute Eosinophils (0.0-0.7) k/cumm 0.15 Absolute Basophils (0.0-0.2) k/cumm 0.03 Differential Comment Rbc morph reviewed RBC Morphology See below Poikilocytosis 1+ Anisocytosis 1+ Microcytosis 3+ Sodium (136-145) mmol/L 138 Potassium (3.5-5.1) mmol/L 3.8 Chloride (98-107) mmol/L 102 Carbon Dioxide (21.0-32.0) mmol/L 22.8 Anion Gap (3-11) mmol/L 13.2 H BUN (7-18) mg/dL 11 Creatinine (0.55-1.02) mg/dL 0.90 Estimated GFR/1.73 m2 (mL/min/1.73m2) >= 60.00 Glucose (74-106) mg/dL 99 Lactate Cancelled Calcium (8.5-10.1) mg/dL 8.9 Total Bilirubin (0.2-1.0) mg/dL 0.4 AST (15-37) U/L 30 ALT (14-59) U/L 57 Alkaline Phosphatase (46-116) U/L 85 Total Protein (6.4-8.2) g/dL 8.0 Albumin (3.4-5.0) g/dL 3.9 Urine Color (Yellow) Urine Clarity (Clear) Urine pH (5-8) Ur Specific [place] (1.005-1.025) Urine Protein (Negative) mg/dL Urine Ketones (Negative) mg/dL Urine Blood (Negative) Urine Nitrite (Negative) Urine Bilirubin (Negative) Urine Urobilinogen (Up TO 0.2) EU/dL Ur Leukocyte Esterase (Negative) Urine RBC (0-2) HPF Urine WBC (0-5) HPF Ur Epithelial Cells (Negative) HPF Urine Crystals (Negative) HPF Urine Bacteria (Negative) HPF Urine Casts (Negative) LPF Urine Mucus (Negative) Ur Culture Indicated? Urine Glucose (Negative) mg/dL Range/Units 07/28/19 07/28/19 13:58 14:08 WBC (4.4-10.8) k/cumm RBC (4.00-5.20) m/cumm Hgb (12.0-15.5) g/dL Hct (36.0-46.0) % MCV (80-95) fL MCH (27.0-33.0) pg MCHC (32.0-36.0) g/dL RDW (11.7-14.6) % Plt Count (130-400) x1000/uL MPV (8.0-11.0) fL Immature Gran % % Neutrophils % Lymphocytes % Monocytes % Eosinophils % Basophils % Absolute Neutrophils (1.2-6.7) k/cumm Absolute Lymphocytes (1.2-3.4) k/cumm Absolute Monocytes (0.11-0.7) k/cumm Absolute Eosinophils (0.0-0.7) k/cumm Absolute Basophils (0.0-0.2) k/cumm Differential Comment RBC Morphology Poikilocytosis Anisocytosis Microcytosis Sodium (136-145) mmol/L Potassium (3.5-5.1) mmol/L Chloride (98-107) mmol/L Carbon Dioxide (21.0-32.0) mmol/L Anion Gap (3-11) mmol/L BUN (7-18) mg/dL Creatinine (0.55-1.02) mg/dL Estimated GFR/1.73 m2 (mL/min/1.73m2) Glucose (74-106) mg/dL Lactate 1.1 Calcium (8.5-10.1) mg/dL Total Bilirubin (0.2-1.0) mg/dL AST (15-37) U/L ALT (14-59) U/L Alkaline Phosphatase (46-116) U/L Total Protein (6.4-8.2) g/dL Albumin (3.4-5.0) g/dL Urine Color (Yellow) Deanna Urine Clarity (Clear) Sl cloudy Urine pH (5-8) 5.5 Ur Specific [place] (1.005-1.025) >= 1.030 H Urine Protein (Negative) mg/dL 30 H Urine Ketones (Negative) mg/dL Negative Urine Blood (Negative) Negative Urine Nitrite (Negative) Negative Urine Bilirubin (Negative) Negative Urine Urobilinogen (Up TO 0.2) EU/dL 0.2 Ur Leukocyte Esterase (Negative) Negative Urine RBC (0-2) HPF Negative Urine WBC (0-5) HPF Negative Ur Epithelial Cells (Negative) HPF Moderate Urine Crystals (Negative) HPF Many calcium oxalate Urine Bacteria (Negative) HPF Moderate Urine Casts (Negative) LPF Negative Urine Mucus (Negative) Moderate Ur Culture Indicated? C&s done as ordered Urine Glucose (Negative) mg/dL Negative
== END 2019-07-28 18:25 | disposition home or self-care (01) ==
PROVIDERS: Emergency Provider Physician Assistant; PCP Nurse Practitioner Family
DX: R10.11 Right upper quadrant pain (principal); R11.10 Vomiting, unspecified; Z79.899 Other long term (current) drug therapy
CPT/HCPCS: 80053; 87040; 96361; 96374; 99285; 74177; 81003; 81015; 83605; 85025; 87086; 87324; 99284; J2405; J3490

== ENCOUNTER 2020-02-17 09:22 | Emergency (ER) | payer MEDICAID, SELFPAY ==
[2020-02-17 09:29] VITALS: BP 121/69; PULSE 92; RESP 20; TEMP 36.4; O2SAT 100
--- NOTE | 2020-02-17 09:35 | ED.GENADUL_ITS ---
Discharge Plan Disposition Patient Disposition: HOME Condition: Improving Discharge Details Clinical Impression: Colitis Primary Care Provider: Sakina Agustin ED Provider: Krysten Bright Home Meds and New Rx's Prescriptions: New ciprofloxacin HCl 500 mg tablet 500 mg PO BID 7 Days Qty: 14 RF: 0 metronidazole [Flagyl] 500 mg tablet 500 mg PO TID 7 Days Qty: 21 RF: 0 dicyclomine 20 mg tablet 20 mg PO TID PRN (Reason: abdominal pain) Qty: 10 RF: 0 Continued epinephrine [EpiPen 2-Honorio] 0.3 MG/0.3 ML auto-injector 0.3 mg IM PRN Qty: 1 RF: 1 escitalopram oxalate [Lexapro] 10 mg tablet 40 mg PO DAILY RF: 0 albuterol sulfate 1.25 mg/3 mL solution for nebulization 1.25 mg IH Q4H PRN (Reason: shortness of breath or wheezing) Qty: 90 RF: 4 levalbuterol tartrate [Xopenex HFA] 45 mcg/actuation HFA aerosol inhaler 1 - 2 inh Inhalation .Q4-6H PRN (Reason: shortness of breath or wheezing) Qty: 3 RF: 3 fluticasone propion-salmeterol [Advair Diskus] 250-50 mcg/dose blister with device 1 ea Inhalation BID Qty: 3 RF: 3 Discharge Instructions Instructions: Colitis (ED) Additional Instructions: You could very likely have Campylobacter diarrheal illness similar to your children. Your stool culture results could take several days to be finalized to confirm this. Take the antibiotics Cipro and Flagyl as directed until finished. Drink plenty of fluids and get plenty of rest. Alternate tylenol and motrin as needed and directed for pain. Follow-up with your primary care doctor in 1 week. Return to the emergency department with any worsening or new concerning symptoms. Discharge Data Discharge Physician: Krysten Bright Medical Decision Making [id number] -- 24-year-old female with a history of asthma, depression, Chiari malformation, GERD and bilateral salpingectomy presents with fever, abdominal pain and diarrhea for the past 2 days. She is afebrile here. Last dose of Tylenol 3 hours ago. She appears uncomfortable but nontoxic. Her abdomen is soft but tender in the left upper and mid quadrants. No meningeal signs. Differential diagnosis includes viral gastroenteritis, Campylobacter, C. difficile colitis, cholecystitis, diverticulitis, UTI, pyelonephritis. Will place an IV, bolus IV fluids, screening labs, urinalysis and CT abdomen and pelvis and give a dose of Toradol and reassess. 1030 --labs reviewed. White blood cell count 20. Lactate 2. Normal lipase. Patient reassessed and she admitted to some nausea and return of pain. Will give a dose of Phenergan and IV Tylenol and reassess. CT notes infectious versus inflammatory colitis as well as a dilated appendix. CT images reviewed with Dr. Gaytan who feels that this is likely colitis and not acute appendicitis. 1230 --patient reassessed and she was feeling much better but pain is slightly returning. Will give a dose of morphine. Patient states she otherwise feels good to go home. Her mother will be picking her up. She was able to tolerate p.o. Cipro and Flagyl. C. difficile negative. We will send with Cipro and Flagyl for home for colitis and suspected Campylobacter infection. There is an interaction with Carissa and her Lexapro. Advised to follow up with the primary care doctor for re-evaluation. Usual and customary return precautions given prior to discharge. Medical Records Medical records reviewed: Yes I reviewed the patient's medical records. Imaging Data Radiologic Study: Radiologist's impression: CT abdomen and pelvis with IV contrast. 1. Findings consistent with an inflammatory or infectious colitis involving the ascending and transverse colon. 2. Appendix measuring 0.8 cm but no evidence of wall enhancement. Air is seen within the appendix. Acute appendicitis is considered less likely. 3. Hepatosplenomegaly. Appendix steatosis. 4. Left ovarian cysts. Largest measuring 2.5 cm. 5. Findings were discussed to the emergency department on the date of the examination. Lab Data Lab results reviewed: Yes I reviewed the patient's lab results. Labs: 02/17/20 11:20 Urine - Clean Catch Urine Culture - Pending 02/17/20 09:55 Blood Blood Culture - Pending 02/17/20 09:40 Blood Blood Culture - Pending Laboratory Tests Range/Units 02/17/20 02/17/20 02/17/20 09:40 09:40 09:40 WBC (4.4-10.8) 10^3/uL 20.33 H RBC (3.93-5.22) 10^6/uL 5.98 H Hgb (11.2-15.7) g/dL 12.0 Hct (36.0-46.0) % 38.3 MCV (80-95) fL 64.0 L MCH (27.0-33.0) pg 20.1 L MCHC (32.0-36.0) % 31.3 L RDW (11.7-14.6) % 15.4 H Plt Count (130-400) 10^3/uL 286 MPV (8.0-11.0) fL 11.1 H Immature Gran % 0.8 Neutrophils % 84.4 Lymphocytes % 8.7 Monocytes % 5.8 Eosinophils % 0.1 Basophils % 0.2 Nucleated RBC % % 0 Absolute Neutrophils (1.2-6.7) 10^3/uL 17.16 H Absolute Lymphocytes (1.2-3.4) 10^3/uL 1.77 Absolute Monocytes (0.1-0.8) 10^3/uL 1.18 H Absolute Eosinophils (0.0-0.7) 10^3/uL 0.02 Absolute Basophils (0.0-0.2) 10^3/uL 0.04 RBC Morphology See below Polychromasia Present Hypochromasia 1+ Microcytosis 2+ VBG Lactate (0.6-1.4) mmol/L 2.0 H Sodium (136-145) mmol/L 136 Potassium (3.5-5.1) mmol/L 3.7 Chloride (98-107) mmol/L 102 Carbon Dioxide (21.0-32.0) mmol/L 21.3 Anion Gap (3-11) mmol/L 12.7 H BUN (7-18) mg/dL 11 Creatinine (0.55-1.02) mg/dL 1.06 H Estimated GFR/1.73 m2 (mL/min/1.73m2) >= 60.00 Glucose (74-106) mg/dL 112 H Calcium (8.5-10.1) mg/dL 9.0 Total Bilirubin (0.2-1.0) mg/dL 0.6 AST (15-37) U/L 29 ALT (14-59) U/L 71 H Alkaline Phosphatase (46-116) U/L 106 Total Protein (6.4-8.2) g/dL 7.8 Albumin (3.4-5.0) g/dL 3.9 Lipase (73-393) U/L 69 Urine Color (Yellow) Urine Clarity (Clear) Urine pH (5-8) Ur Specific [place] (1.005-1.025) Urine Protein (Negative) mg/dL Urine Ketones (Negative) mg/dL Urine Blood (Negative) Urine Nitrite (Negative) Urine Bilirubin (Negative) Urine Urobilinogen (Up TO 0.2) EU/dL Ur Leukocyte Esterase (Negative) Urine Glucose (Negative) mg/dL Stool Campylobacter PCR Stl C.difficile Tox PCR (Negative) Stool Salmonella PCR Stool Shigella PCR Shiga Toxin (PCR) Range/Units 02/17/20 02/17/20 02/17/20 11:20 11:45 11:45 WBC (4.4-10.8) 10^3/uL RBC (3.93-5.22) 10^6/uL Hgb (11.2-15.7) g/dL Hct (36.0-46.0) % MCV (80-95) fL MCH (27.0-33.0) pg MCHC (32.0-36.0) % RDW (11.7-14.6) % Plt Count (130-400) 10^3/uL MPV (8.0-11.0) fL Immature Gran % Neutrophils % Lymphocytes % Monocytes % Eosinophils % Basophils % Nucleated RBC % % Absolute Neutrophils (1.2-6.7) 10^3/uL Absolute Lymphocytes (1.2-3.4) 10^3/uL Absolute Monocytes (0.1-0.8) 10^3/uL Absolute Eosinophils (0.0-0.7) 10^3/uL Absolute Basophils (0.0-0.2) 10^3/uL RBC Morphology Polychromasia Hypochromasia Microcytosis VBG Lactate (0.6-1.4) mmol/L Sodium (136-145) mmol/L Potassium (3.5-5.1) mmol/L Chloride (98-107) mmol/L Carbon Dioxide (21.0-32.0) mmol/L Anion Gap (3-11) mmol/L BUN (7-18) mg/dL Creatinine (0.55-1.02) mg/dL Estimated GFR/1.73 m2 (mL/min/1.73m2) Glucose (74-106) mg/dL Calcium (8.5-10.1) mg/dL Total Bilirubin (0.2-1.0) mg/dL AST (15-37) U/L ALT (14-59) U/L Alkaline Phosphatase (46-116) U/L Total Protein (6.4-8.2) g/dL Albumin (3.4-5.0) g/dL Lipase (73-393) U/L Urine Color (Yellow) Yellow Urine Clarity (Clear) Clear Urine pH (5-8) 6.0 Ur Specific [place] (1.005-1.025) 1.010 Urine Protein (Negative) mg/dL Negative Urine Ketones (Negative) mg/dL Negative Urine Blood (Negative) Negative Urine Nitrite (Negative) Negative Urine Bilirubin (Negative) Negative Urine Urobilinogen (Up TO 0.2) EU/dL 0.2 Ur Leukocyte Esterase (Negative) Negative Urine Glucose (Negative) mg/dL Negative Stool Campylobacter PCR Cancelled Stl C.difficile Tox PCR (Negative) Negative Stool Salmonella PCR Cancelled Stool Shigella PCR Cancelled Shiga Toxin (PCR) Cancelled HPI General Mode of arrival: ambulatory . Date/Time Provider Initiated Documentation: 02/17/20 09:25 . Limitations to Documentation: no limitations . Information obtained by: patient . HPI Narrative: Patient is a 24-year-old female with a history of asthma, Chiari malformation, depression, GERD and bilateral salpingectomy who presents to the ED with a complaint of fever, diarrhea and abdominal pain for the past 2 days. Patient states her symptoms started with fever 2 days ago with a T-max of 104. She states she has had approximately 13 episodes of watery brown diarrhea. She admits to nausea but denies any vomiting. She states her children were recently diagnosed and treated for Campylobacter diarrhea which she states was told likely due to her dog having this. She also admits to headache and neck pain but denies any ear pain, sore throat, cough, chest pain, shortness of breath, urinary symptoms, recent travel, recent known exposure to coronavirus or recent antibiotics. Related Data Home Medications Medication Instructions Recorded Confirmed epinephrine [EpiPen 2-Honorio] 0.3 mg IM PRN #1 pack 08/06/12 02/17/20 escitalopram oxalate 10 mg tablet 40 mg PO DAILY 06/26/18 02/17/20 albuterol sulfate 1.25 mg/3 mL 1.25 mg IH Q4H PRN #90 ml 09/09/19 02/17/20 solution for nebulization fluticasone 250 mcg-salmeterol 50 1 ea INHALATION BID #3 unit 09/09/19 02/17/20 mcg/dose blistr powdr for inhalation levalbuterol tartrate 45 1 - 2 inh INHALATION .Q4-6H PRN #3 09/09/19 02/17/20 mcg/actuation aerosol inhaler unit ciprofloxacin HCl 500 mg PO BID 7 Days #14 tab 02/17/20 dicyclomine 20 mg PO TID PRN #10 tab 02/17/20 metronidazole [Flagyl] 500 mg PO TID 7 Days #21 tab 02/17/20 Previous Rx's Medication Instructions Recorded albuterol sulfate 1.25 mg/3 mL 1.25 mg IH Q4H PRN #90 ml 09/09/19 solution for nebulization fluticasone 250 mcg-salmeterol 50 1 ea INHALATION BID #3 unit 09/09/19 mcg/dose blistr powdr for inhalation levalbuterol tartrate 45 1 - 2 inh INHALATION .Q4-6H PRN #3 09/09/19 mcg/actuation aerosol inhaler unit ciprofloxacin HCl 500 mg PO BID 7 Days #14 tab 02/17/20 dicyclomine 20 mg PO TID PRN #10 tab 02/17/20 metronidazole [Flagyl] 500 mg PO TID 7 Days #21 tab 02/17/20 Allergies Allergy/AdvReac Type Severity Reaction Status Date / Time venom-honey bee Allergy Severe Anaphylaxsi Unverified 02/17/20 09:33 [bee venom (honey bee)] s topiramate Allergy Intermediate Skin Rash Unverified 02/17/20 09:33 amino acids [From Chromimin] Allergy Mild Other (See Unverified 02/17/20 09:33 Comment) chromium [From Chromimin] Allergy Mild Other (See Unverified 02/17/20 09:33 Comment) nickel Allergy Mild Rash Unverified 02/17/20 09:33 Environmental Allergy Mild Watery Uncoded 02/17/20 09:33 eyes, sneezing General Stated Complaint: Abd Prob JOSE: 3 Review of Systems All systems reviewed & are unremarkable except as noted in HPI and below Constitutional Constitutional: Reports as per HPI, Denies chills, Reports fatigue, Reports fever(s), Reports headache(s) and Reports poor appetite Eyes Eyes: Denies blurry vision ENT Ears, Nose, Mouth, and Throat: Denies dizziness, Reports headache(s), Denies sore throat and Denies throat swelling Cardiovascular Cardiovascular: Denies chest pain and Denies dyspnea Respiratory Respiratory: Denies cough and Denies dyspnea Gastrointestinal Gastrointestinal: Reports abdominal pain, Reports diarrhea and Denies vomiting Genitourinary Genitourinary: Denies hematuria and Denies dysuria Musculoskeletal Musculoskeletal: Denies back pain and Denies numbness Integumentary/Breasts Skin/Breast: Denies lesions and Denies rash Neurologic Neurologic: Denies dizziness, Reports headache(s), Denies localized weakness and Denies numbness Endocrine Endocrine: Reports fatigue Allergic/Immunologic Allergic/Immunologic: Denies throat swelling [facility] Medical History (Updated 02/17/20 @ 12:40 by Krysten Bright DO) Allergic reaction to bee sting Alopecia (03/28/13) Asthma (05/23/13) 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) Chiari malformation type I (07/14/17) [facility] [place] Neurosurgery consult: no surgery at this time Depression Dyshidrotic eczema (02/24/14) Gastroesophageal reflux disease (05/23/13) Hiatal hernia; long-term Rx Dexilant Headache (05/23/13) Tobacco use disorder Ureterolithiasis (11/28/17) (L) UVJ passed spontaneously Varicella infection Age 2 or 3 Surgical History (Updated 02/17/20 @ 10:32 by Krysten rBight DO) H/O bilateral salpingectomy Family History Grandmother Personal history of malignant neoplasm breast CA Social History Smoking/Tobacco Use Status: Current every day Tobacco Type: cigarettes Smoking risk assessment performed?: Yes Alcohol Intake: current Alcohol Intake frequency: holidays/special occasions only Drug use: Never Substance use type: does not use Number of Children: 2 Pets and animals: No Sexually active: No Current gender identity: female What type of physical activity do you participate in: walking Frequency: daily Do you feel safe at home: Yes Do you feel safe in your relationship?: Yes Exam Const General: cooperative, uncomfortable and no acute distress Orientation: alert, awake and oriented x3 HENMT Head: normal to inspection Face and sinus: normal facial exam Eyes General: appearance normal, both eyes and all related structures EOM: EOM intact bilaterally Neck Neck: normal visual inspection and No submandibular swelling Lymphatic: no lymphadenopathy noted Chest Chest: normal inspection of the chest and no tenderness Resp Effort & Inspection: normal respiratory effort and able to speak in complete sentences Auscultation: clear to auscultation bilaterally Cardio Rate: regular rate Rhythm: regular rhythm GI Inspection: obesity Palpation: soft, not firm, not rigid and tender (L mid abdomen) in the LUQ Auscultation: normal bowel sounds Skin General skin exam: no rashes or lesions noted Neuro General: patient alert, patient awake and patient oriented x3 Cognition: normal cognition Speech: speech normal Motor: muscle tone normal throughout Sensory Exam: no sensory deficits noted Extrem General: normal to inspection, full ROM, capillary refill normal, no calf tenderness bilaterally and no edema Psych Appearance: grossly normal Mental Status: mental status grossly normal Speech and Movement: speech and movement normal Affect: normal affect Course Vital Signs Vital signs: Vital Signs Temperature 97.5 F L 02/17/20 09:29 Pulse 92 H 02/17/20 09:29 Respiratory Rate 20 02/17/20 09:29 Blood Pressure 121/69 02/17/20 09:29 Pulse Oximetry 100 02/17/20 09:29 Temperature 97.5 F L 02/17/20 09:29 Temperature Source Skin 02/17/20 09:29 Pulse 92 H 02/17/20 09:29 Respiratory Rate 20 02/17/20 09:29 Respiratory Effort Non-Labored 02/17/20 09:34 Blood Pressure 121/69 02/17/20 09:29 Blood Pressure Position Sitting 02/17/20 09:29 Pulse Oximetry 100 02/17/20 09:29 Oxygen Delivery Method Room Air 02/17/20 09:29 Oxygen Flow Rate 0 02/17/20 09:29 Pain Level 7 02/17/20 09:29
[2020-02-17 10:01] LABS: Abs Immature Grans 0.16 10^3/uL (0.0-0.06); Absolute Monocyte Count 1.18 10^3/uL (0.1-0.8); Basophils % 0.2; Eosinophils % 0.1; HCT 38.3 % (36.0-46.0); Immature Grans % 0.8; Lymphocytes % 8.7; MCH 20.1 pg (27.0-33.0); MCHC 31.3 % (32.0-36.0); MPV 11.1 fL (8.0-11.0); Monocytes % 5.8; Neutrophils % 84.4; Nucleated RBC 0 %; Platelet Count 286 10^3/uL (130-400); RBC 5.98 10^6/uL (3.93-5.22); RDW 15.4 % (11.7-14.6); RDW-SD 32.9 fL; WBC 20.33 10^3/uL (4.4-10.8)
[2020-02-17] MEDS: Normal Saline 1,000 ML 1000 ML IV ×2 (10:07→11:33)
[2020-02-17] MEDS: Ketorolac 30 MG/ML VIAL IVP (10:07)
[2020-02-17 10:09] LABS: Absolute Basophil Count 0.04 10^3/uL (0.0-0.2); Absolute Eosinophil Count 0.02 10^3/uL (0.0-0.7); Absolute Lymphocyte Count 1.77 10^3/uL (1.2-3.4); Absolute Neutrophil Count 17.16 10^3/uL (1.2-6.7)
--- NOTE | 2020-02-17 10:15 | DI.CT_ITS ---
EXAM: CT ABDOMEN PELVIS W CLINICAL HISTORY: L sided abdominal pain, r/o diverticulitis,colitis TECHNIQUE: Imaging Protocol: Axial computed tomography images with coronal and sagittal reformatted images were created and reviewed CONTRAST MATERIAL: Intravenous: Omnipaque 350 Contrast volume:100 mL Oral: No COMPARISON: CT CT ABDOMEN PELVIS W from 07/28/2019 FINDINGS: ABDOMEN: Lung Bases: There is a 4 mm triangular nodule associated with the right major fissure most consistent with an intraparenchymal lymph node. Liver: There is diffuse decreased attenuation of the liver consistent with fatty infiltration. No stefania surable mass. The liver measures 24 cm in length. Portal, Superior Mesenteric, and Splenic Veins: Unremarkable. Gallbladder and Biliary Tract: No radiodense calculus or dilation. Pancreas: Normal density, no abnormal calcifications or inflammatory process. Spleen: The spleen measures 15 cm in length. Adrenals: No masses seen. Kidneys: Normal size, contour and axis. No radiodense stones or obstructive uropathy. No masses seen. Abdominal Aorta: Abdominal portion non-dilated. Bowel: No evidence of bowel obstruction. There is concentric moderate bowel wall thickening beginning in the ascending colon and extending into the mid transverse colon. Pericolonic inflammatory changes are present. No abscess or free air. The appendix measures 0.8 cm in diameter. No wall enhancement i s seen. There is air seen within the appendix. Peritoneal Cavity: Mild pericolonic inflammatory changes seen around the ascending colon and transver se colon proximally. No pneumoperitoneum. No ascites. Lymph Nodes: There are mildly enlarged lymph nodes seen in the right lower quadrant which are likely reactive. Bones: Mild degenerative changes. Soft Tissues: Unremarkable. PELVIS: Bladder: Symmetric distention, no gross wall thickening. Reproductive Organs: Left ovarian cysts are present. The largest measures 2.5 cm. Lymph Nodes: Please see above. Bones: Mild degenerative changes. IMPRESSION: 1. Findings consistent with an inflammatory infectious colitis involving the ascending and transverse colon. 2. Appendix measuring 0.8 cm but no evidence of wall enhancement. Air is seen within the appendix. Ac [place] appendicitis is considered less likely. 3. Hepatosplenomegaly. Hepatic steatosis. 4. Left ovarian cysts. The largest measures 2.5 cm. 5. Findings were discussed with the emergency department on the date of the examination. RADIATION DOSE DELIVERED: 1,646.09mGy.cm Total DLP DATA REPOSITORY: All CT scans at this facility are submitted to the National Radiology Data Registry (NRDR) Dose Index Registry (DIR) with the [employer] ([employer]). RADIATION OPTIMIZATION: All CT scans at this facility use at least one of these dose optimization te chniques: automated exposure control; mA and/or kV adjustment per patient size (includes targeted exa ms where dose is matched to clinical indication); or iterative reconstruction.
[2020-02-17 10:21] LABS: ALT 71 U/L (14-59); AST 29 U/L (15-37); Albumin 3.9 g/dL (3.4-5.0); Alkaline Phosphatase 106 U/L (46-116); Anion Gap 12.7 mmol/L (3-11); BUN 11 mg/dL (7-18); Bilirubin, Total 0.6 mg/dL (0.2-1.0); CO2 21.3 mmol/L (21.0-32.0); CREATININE 1.06 mg/dL (0.55-1.02); Chloride 102 mmol/L (98-107); Glucose 112 mg/dL (74-106); Potassium 3.7 mmol/L (3.5-5.1); Sodium 136 mmol/L (136-145); Total Protein 7.8 g/dL (6.4-8.2)
[2020-02-17 10:23] LABS: Diff Comment RBC Morph Reviewed; Hypochromasia 1+; Microcytosis 2+; Polychromasia Present
[2020-02-17 10:32] LABS: Lipase 69 U/L (73-393)
[2020-02-17] MEDS: Omnipaque 350 MG/ML 100 ML BTL IV (10:55)
[2020-02-17] MEDS: Normal Saline - Diluent 50 ML VIAL IV (10:59)
[2020-02-17 11:23] VITALS: BP 113/64; PULSE 61; RESP 16; TEMP 36.3; O2SAT 99
[2020-02-17 11:29] LABS: Bilirubin Negative (Negative); Blood Negative (Negative); Clarity Clear (Clear); Glucose Negative (Negative); Ketones Negative (Negative); Leukocyte Esterase Negative (Negative); Nitrite Negative (Negative); Urobilinogen 0.2 EU/dL (Up TO 0.2)
[2020-02-17 11:30] VITALS: BP 119/57; PULSE 84; RESP 16; O2SAT 100
[2020-02-17] MEDS: ACETAMINOPHEN 1,000 MG/100 ML BTL 400 MG IVPB (12:05)
[2020-02-17 12:36] LABS: C Diff PCR Negative (Negative)
[2020-02-17] MEDS: metroNIDAZOLE 500 MG TAB PO (12:49)
[2020-02-17] MEDS: Ciprofloxacin 500 MG TAB PO (12:49)
[2020-02-17 12:59] VITALS: BP 123/75; PULSE 93; RESP 18; TEMP 36.7; O2SAT 100
--- NOTE | 2020-02-20 19:51 | ED.FU.B_ITS ---
Lab called to state that patient's stool culture is positive for Campylobacter jejuni. Discussed with lab and due to computer issues with [employer], lab results not yet accessible within the chart. Patient was called at home and notified of her result which we had previously discussed was likely the etiology on her recent ED visit. She stated she was feeling slightly better. She was advised to return here with any concerns.
[2020-02-21 16:38] LABS: Misc Referral (VDH) See Comments
== END 2020-02-17 13:47 | disposition home or self-care (01) ==
PROVIDERS: Emergency Provider Physician Assistant; PCP Nurse Practitioner Family
DX: K52.89 Other specified noninfective gastroenteritis and colitis (principal); R50.9 Fever, unspecified; R10.12 Left upper quadrant pain
CPT/HCPCS: 36415; 80053; 83690; 87040; 87493; 87505; 96361; 96365; 96367; 96375; 99285; 74177; 81003; 83605; 85025; 87086; J0131; J1885; J3490

== ENCOUNTER 2020-08-03 12:53 | Outpatient (CLI) | payer MEDICAID, SELFPAY ==
--- NOTE | 2020-08-03 09:15 | DI.RAD_ITS ---
Exam(s) XR KNEE RT 3V AP,LAT,SCOTT EXAM: XR KNEE RT 3V AP,LAT,SCOTT CLINICAL HISTORY: Pain swelling R knee; remote h/o ligamentous injury,[id number]. TECHNIQUE: 2D digital imaging was performed. COMPARISON: No previous. FINDINGS: BONES: No acute fracture is present. No bony destructive lesion is seen. JOINTS: The knee is normally aligned. No joint effusion is seen. SOFT TISSUE: Normal. IMPRESSION: Unremarkable radiographs of the right knee. DATA REPOSITORY: RADIATION DOSE DELIVERED:
== END 2020-08-03 13:13 ==
PROVIDERS: PCP Nurse Practitioner Family; Visit Provider Nurse Practitioner Family
DX: M25.561 Pain in right knee (principal); G89.29 Other chronic pain
CPT/HCPCS: 73562

== ENCOUNTER 2020-11-22 21:16 | Emergency (ER) | payer MEDICAID, SELFPAY ==
--- NOTE | 2020-11-22 21:15 | DI.RAD_ITS ---
Exam(s) XR HAND RT COMPLETE EXAM: XR HAND RT COMPLETE CLINICAL HISTORY: Trauma, Swelling, R/O Fracture. TECHNIQUE: 2D digital imaging was performed. COMPARISON: CR RIGHT HAND COMPLETE from 09/01/2009 FINDINGS: No evidence fracture or dislocation. No radiopaque foreign body. No osseous lesions nor erosions. IMPRESSION: No significant findings. DATA REPOSITORY: RADIATION DOSE DELIVERED:
[2020-11-22 21:20] VITALS: BP 141/76; PULSE 90; RESP 18; TEMP 36.5; O2SAT 99
--- NOTE | 2020-11-22 21:31 | ED.GENADUL_ITS ---
Discharge Plan Disposition Patient Disposition: HOME Condition: Stable Discharge Details Clinical Impression: Sprain and strain of right hand Primary Care Provider: Sakina Agustin ED Provider: Imani Botello Home Meds and New Rx's Prescriptions: Continued buspirone 15 mg tablet 15 mg PO BID Qty: 180 RF: 3 epinephrine [EpiPen 2-Honorio] 0.3 MG/0.3 ML auto-injector 0.3 mg IM PRN Qty: 1 RF: 1 albuterol sulfate 1.25 mg/3 mL solution for nebulization 1.25 mg IH Q4H PRN (Reason: shortness of breath or wheezing) Qty: 90 RF: 4 albuterol sulfate 90 mcg/actuation HFA aerosol inhaler 1 - 2 puff inhalation Q4H PRN (Reason: shortness of breath or wheezing) Qty: 3 RF: 3 buprenorphine-naloxone [Suboxone] 8-2 mg film 2 film sublingual DAILY RF: 0 escitalopram oxalate 20 mg tablet 40 mg PO DAILY Qty: 180 RF: 3 Discharge Instructions Instructions: Hand Sprain (ED) Additional Instructions: The x-rays today show no evidence of a broken bone. Rest, ice, compression, elevation. Please take Tylenol or Ibuprofen with food every 4-6 hours as needed for pain and swelling. Follow up with primary care provider in 3-5 days. Return to ED sooner if any worsening or concerns. Increase oral fluids. Referrals: Sakina Agustin NP [Primary Care Provider] - Discharge Data Discharge Date/Time-TO BE ENTERED AT DEPARTURE: 11/22/20 22:10 Medical Decision Making 25-year-old female presents with right hand injury after punching a wall prior to arrival. X-ray right hand ordered. TECHNIQUE: Imaging protocol: XR Right hand. Views: 3 or more views. COMPARISON: CR XR WRIST RT COMPLETE 01/15/2019 8:10 AM FINDINGS: Bones/joints: Normal. Soft tissues: Normal. IMPRESSION: No acute fracture. Thank you for allowing us to participate in the care of your patient. Dictated and Authenticated by: Vicente Christensen MD Hector wrap applied instructed on rest ice compression elevation and alternating Tylenol and ibuprofen. Patient remained hemodynamically stable throughout stay. This text was generated using [employer] system, please disregard any oddities of phrase or misspellings. HPI General Mode of arrival: ambulatory . Date/Time Provider Initiated Documentation: 11/22/20 21:20 . Limitations to Documentation: no limitations . Information obtained by: patient . HPI Narrative: 26 year old female Patient presents to the ER chief complaint of right hand pain and swelling after punching a garage wall which occurred 1 hour prior to arrival. She reports increased pain and swelling and some numbness tingling which radiates up her arm. Alleviating factors include immobilization and cold therapy. She has no obvious deformity, however she does have some right hand swelling. Here for an x-ray, Offered tylenol or Ibuprofen which patient declined at this time. Robert blum reports that she applied ice prior to arrival. No other injuries or complaints at this time. Related Data Home Medications Medication Instructions Recorded Confirmed epinephrine [EpiPen 2-Honorio] 0.3 mg IM PRN #1 pack 08/06/12 11/22/20 albuterol sulfate 1.25 mg/3 mL 1.25 mg IH Q4H PRN #90 ml 09/09/19 11/22/20 solution for nebulization albuterol sulfate 90 mcg/actuation 1 - 2 puff INHALATION Q4H PRN #3 02/24/20 11/22/20 aerosol inhaler unit buprenorphine 8 mg-naloxone 2 mg 2 film SUBLINGUAL DAILY 06/26/20 11/22/20 sublingual film buspirone 15 mg tablet 15 mg PO BID #180 tab 07/31/20 11/22/20 escitalopram oxalate 20 mg tablet 40 mg PO DAILY #180 tab 10/06/20 11/22/20 Previous Rx's Medication Instructions Recorded albuterol sulfate 1.25 mg/3 mL 1.25 mg IH Q4H PRN #90 ml 09/09/19 solution for nebulization albuterol sulfate 90 mcg/actuation 1 - 2 puff INHALATION Q4H PRN #3 02/24/20 aerosol inhaler unit buspirone 15 mg tablet 15 mg PO BID #180 tab 07/31/20 escitalopram oxalate 20 mg tablet 40 mg PO DAILY #180 tab 10/06/20 Allergies Allergy/AdvReac Type Severity Reaction Status Date / Time venom-honey bee Allergy Severe Anaphylaxsi Unverified 11/22/20 21:25 [bee venom (honey bee)] s topiramate Allergy Intermediate Skin Rash Unverified 11/22/20 21:25 amino acids [From Chromimin] Allergy Mild Other (See Unverified 11/22/20 21:25 Comment) chromium [From Chromimin] Allergy Mild Other (See Unverified 11/22/20 21:25 Comment) nickel Allergy Mild Rash Unverified 11/22/20 21:25 trazodone Allergy Unknown unknown Verified 11/22/20 21:25 Environmental Allergy Mild Watery Uncoded 11/22/20 21:25 eyes, sneezing General Stated Complaint: Orthopedic JOSE: 4 Review of Systems All systems reviewed & are unremarkable except as noted in HPI and below Musculoskeletal Musculoskeletal: Reports arthralgias (Right hand) and Reports joint swelling [facility] Medical History Allergic reaction to bee sting Alopecia (03/28/13) Anxiety and depression Asthma (05/23/13) 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) Chiari malformation type I (07/14/17) [facility] [place] Neurosurgery consult: no surgery at this time Cocaine use disorder (06/05/20) [facility] admission 05/24-06/05/2020 Dyshidrotic eczema (02/24/14) Gastroesophageal reflux disease (05/23/13) Hiatal hernia; long-term Rx Dexilant Headache (05/23/13) Opioid use disorder (06/05/20) [facility] admission 05/24-06/05/2020 PTSD (post-traumatic stress disorder) (06/05/20) [facility] admission 05/24-06/05/2020 Tobacco use disorder Ureterolithiasis (11/28/17) (L) UVJ passed spontaneously Varicella infection Age 2 or 3 Surgical History H/O bilateral salpingectomy Family History Grandmother Breast cancer Mother Melanoma Social History Smoking/Tobacco Use Status: Current every day Tobacco Type: cigarettes Smoking risk assessment performed?: Yes Alcohol Intake: current Alcohol Intake frequency: holidays/special occasions only Drug use: Never Substance use type: former substance user Date of last use: opioids, cocaine Number of Children: 2 Pets and animals: No Sexually active: No Current gender identity: female What type of physical activity do you participate in: walking Frequency: daily Do you feel safe at home: Yes Do you feel safe in your relationship?: Yes Exam Const General: cooperative, healthy appearing, well developed and other (Tearful) Nutritional Appearance: average body habitus and well nourished Orientation: alert, awake and oriented x3 Extrem Right upper extremity: normal capillary refill and hand Details: abnormal to inspection Details: joint swelling, tendon exam normal and swelling Location: of the dorsal hand Hand/finger images: 1. Contusion Course Vital Signs Vital signs: Vital Signs Temperature 36.5 C 11/22/20 21:20 Pulse 90 11/22/20 21:20 Respiratory Rate 18 11/22/20 21:20 Blood Pressure 141/76 H 11/22/20 21:20 Pulse Oximetry 99 11/22/20 21:20 Temperature 36.5 C 11/22/20 21:20 Temperature Source Temporal Artery Scan 11/22/20 21:20 Pulse 90 11/22/20 21:20 Respiratory Rate 18 11/22/20 21:20 Respiratory Effort Non-Labored 11/22/20 21:26 Blood Pressure 141/76 H 11/22/20 21:20 Blood Pressure Position Sitting 11/22/20 21:20 Pulse Oximetry 99 11/22/20 21:20 Oxygen Delivery Method Room Air 11/22/20 21:20 Oxygen Flow Rate 0 11/22/20 21:20 Pain Level 5 11/22/20 21:20
--- NOTE | 2020-11-22 21:42 | NUR.NOTE ---
Nursing Note: Patient to x-ray.
--- NOTE | 2020-11-22 21:52 | DI.VRAD_ITS ---
PROCEDURE INFORMATION: Exam: XR Right Hand Exam date and time: 11/22/2020 9:29 PM Age: 25 years old Clinical indication: Injury or trauma; Other: Punched wall; Blunt trauma (contusions or hematomas); Hand; Left; Injury date: 11/22/20; Injury details: Trauma, swelling, R/O FX TECHNIQUE: Imaging protocol: XR Right hand. Views: 3 or more views. COMPARISON: CR XR WRIST RT COMPLETE 01/15/2019 8:10 AM FINDINGS: Bones/joints: Normal. Soft tissues: Normal. IMPRESSION: No acute fracture. Dictated and Authenticated by: Vicente Christensen MD. Ordering:AVIS Diallo MD
== END 2020-11-22 22:10 | disposition home or self-care (01) ==
PROVIDERS: Emergency Provider Registered Nurse Emergency; PCP Nurse Practitioner Family
DX: S63.8X1A Sprain of other part of right wrist and hand, initial encounter (principal); W22.01XA Walked into wall, initial encounter
CPT/HCPCS: 29125; 99283; 73130

== ENCOUNTER 2020-12-03 01:31 | Outpatient (CLI) | payer MEDICAID, SELFPAY ==
--- NOTE | 2020-12-03 08:00 | DI.RAD_ITS ---
Exam(s) XR STERNUM EXAM: XR STERNUM CLINICAL HISTORY: inferior sternal pain, r/o fx or mass,R07.89. TECHNIQUE: 2D digital imaging was performed. COMPARISON: CR CHEST 2 VIEWS PA,LAT from 08/23/2017 FINDINGS: BONES: No acute fracture is present. No bony destructive lesion is seen. There is calcification of t he costal cartilage. IMPRESSION: Unremarkable radiographs of the sternum. DATA REPOSITORY: RADIATION DOSE DELIVERED:
== END 2020-12-03 01:51 ==
PROVIDERS: PCP Nurse Practitioner Family; Visit Provider Nurse Practitioner Family
DX: R07.89 Other chest pain (principal)
CPT/HCPCS: 71120

== ENCOUNTER 2021-02-17 01:48 | Outpatient (CLI) | payer MEDICAID, SELFPAY ==
[2021-02-17 08:30] VITALS: BP 114/62; PULSE 53; TEMP 36.9; O2SAT 97
[2021-02-17 09:30] VITALS: BP 117/62; PULSE 53; TEMP 36.6; O2SAT 98
[2021-02-17 09:55] VITALS: BP 131/66; PULSE 55; TEMP 36.8; O2SAT 98
[2021-02-17 11:14] VITALS: BP 125/80; TEMP 37.3; O2SAT 99
== END 2021-02-17 01:49 | disposition home or self-care (01) ==
LOC: INF 01:49
PROVIDERS: PCP Nurse Practitioner Family; Visit Provider Family Medicine
DX: U07.1 COVID-19 (principal)
CPT/HCPCS: 96365

== ENCOUNTER 2021-04-03 21:44 | Emergency (ER) | payer MEDICAID, SELFPAY ==
[2021-04-03] VITALS (13 sets, daily range): BP systolic 123–147; BP diastolic 58–75; PULSE 84–106; RESP 11–26; TEMP 36.7; O2SAT 86–99
--- NOTE | 2021-04-03 21:45 | RT.EKG_ITS ---
APPROVED REPORT Exam: Resting ECG Reason for Exam: Unresponsive episode Patient Location: E HR:90 bpm ECG Measurements Heart Rate 90 AXIS WI 141 P 38 QRSd 97 QRS 80 QT 384 T 35 QTc 470 Conclusion Sinus rhythm...normal P axis, V-rate 60- 99
--- NOTE | 2021-04-03 22:00 | DI.CT_ITS ---
Exam(s) CT CHEST PE CTA EXAM: CT CHEST PE CTA CLINICAL HISTORY: let sided chest pain. TECHNIQUE: Imaging Protocol: Axial CT angiography was performed with multi-slice acquisition and mu lti-planar and/or 3D reconstructions. CONTRAST MATERIAL: Intravenous: Omnipaque 350 Contrast volume:structured data in ml COMPARISON: CT CT ABDOMEN PELVIS W from 02/17/2020 FINDINGS: CT angiography of the chest was performed with intravenous infusion of 100 cc of Omnipaque 350. There are patchy diffuse ground-glass intrapulmonary opacities with appearance suggestive of pneumoni tis period. No pleural effusion. Tracheobronchial tree appears intact. No evidence of pulmonary embolic disease. Thoracic aorta is of normal diameter, no thoracic aortic an eurysm or dissection, major branch vessels appear intact. No mediastinal or hilar adenopathy. Images obtained through the upper abdomen show unremarkable appearance of the visualized portions of the liver, spleen, pancreas, adrenals, and kidneys. IMPRESSION: Bilateral patchy ground-glass opacities with appearance suggestive of pneumonitis, other etiologies n ot excluded on the basis of this examination. No evidence of pulmonary embolic disease. RADIATION DOSE DELIVERED: 604mGy.cm Total DLP 604mGy.cm Total DLP 16.9mGy CTDIvol DATA REPOSITORY: All CT scans at this facility are submitted to the National Radiology Data Registry (NRDR) Dose Index Registry (DIR) with the [employer] ([employer]). RADIATION OPTIMIZATION: All CT scans at this facility use at least one of these dose optimization te chniques: automated exposure control; mA and/or kV adjustment per patient size (includes targeted exa ms where dose is matched to clinical indication); or iterative reconstruction.
--- NOTE | 2021-04-03 22:00 | DI.RAD_ITS ---
Exam(s) XR HAND LT COMPLETE EXAM: XR HAND LT COMPLETE CLINICAL HISTORY: pain TECHNIQUE: COMPARISON: CR,XR XR HAND RT COMPLETE from 11/22/2020 FINDINGS: Three views were obtained. No bony or soft tissue abnormality is seen. IMPRESSION: RADIATION DOSE DELIVERED: Total DLP
--- NOTE | 2021-04-03 22:01 | ED.GENADUL_ITS ---
Discharge Plan Disposition Patient Disposition: HOME Condition: Stable Discharge Details Clinical Impression: Overdose, Chest pain Primary Care Provider: Sakina Agustin ED Provider: Fitz Ramos Home Meds and New Rx's Prescriptions: New Narcan 4 mg/actuation spray,non-aerosol 4 mg intranasal Q3M PRN (Reason: opioid overdose) Qty: 2 RF: 0 Continued buspirone 15 mg tablet 15 mg PO BID Qty: 180 RF: 3 epinephrine [EpiPen 2-Honorio] 0.3 MG/0.3 ML auto-injector 0.3 mg IM PRN Qty: 1 RF: 1 albuterol sulfate 1.25 mg/3 mL solution for nebulization 1.25 mg IH Q4H PRN (Reason: shortness of breath or wheezing) Qty: 90 RF: 4 albuterol sulfate 90 mcg/actuation HFA aerosol inhaler 1 - 2 puff inhalation Q4H PRN (Reason: shortness of breath or wheezing) Qty: 3 RF: 3 escitalopram oxalate 20 mg tablet 40 mg PO DAILY Qty: 180 RF: 3 buprenorphine-naloxone 2-0.5 mg tablet, sublingual SUBLINGUAL RF: 0 buprenorphine-naloxone 8-2 mg tablet, sublingual SUBLINGUAL RF: 0 Discharge Instructions Instructions: Opioid Safety (ED) Additional Instructions: Follow up with your primary care provider within 1-2 weeks and contact recovery center as well if you feel more ill, have difficulty breathing or severe worsening pain return to the emergency department Medical Decision Making 26 yo female with hx of prior drug abuse who comes in with ems after she smoked heroin and became unresponsive. Apparently her found her unresponsive, called ems and the performed cpr without checking a pulse and on arrival by ems was breathing on her own. She was given 4mg narcan and she became caox4. She arrives caox4.She is complaining of left sided chest pain and states it feels like her left lung is on fire. She denies other drug use and states tonight was the first illicit drug use that she's had since May. She is also complaining of left hand pain. She is caox4 with clear speech. She does have pin point pupils, eomi, no facial droop. She has no abdominal tenderness. She has pain with palpation to the mid left palm. No erythema or swelling, normal sensation and pulses. She has reproducible tenderness over the left anterior chest where ems states she had cpr. Family member advised that she did strike her head when they found her and started doing cpr and she has a mild headache now. Given she was breathing on arrival of ems and this was after heroin I doubt true cardiac arrest and feel it was likely opiate overdose. Will scan her chest to evaluate for ptx vs rib fracture and less likely PE. Will also image her left hand and observe here in case she needs more narcan imaging shows ground glass pulmonary opacities which I suspect is from aspiration, hand xray unremarkable. WBC of 21 likely reactive from the overdose, no infectious symptoms. She is ambulatory and not requiring oxygen and hasn't required any more narcan. Will d/c and advised to f/u with pcp and contact info for recovery center given, return precautions given Differential Diagnosis Differential Diagnosis: drug abuse, overdose Medical Records Medical records reviewed: Yes I reviewed the patient's medical records. Imaging Data Radiologic Study: Attestation: I personally reviewed and interpreted this imaging study as follows: Imaging: CT Scan Radiologist's impression: PROCEDURE INFORMATION: Exam: CT Head Without Contrast Exam date and time: 04/03/2021 10:44 PM Age: 26 years old Clinical indication: Injury or trauma; Patient HX: Head trauma TECHNIQUE: Imaging protocol: Computed tomography of the head without contrast. COMPARISON: MRI - BRAIN WO CONTRAST 03/28/2017 5:06 PM FINDINGS: Brain: IV contrast limits evaluation for subtle intracranial hemorrhage. No definite acute intracranial hemorrhage is identified. No mass or mass effect. No acute territorial infarct. Cerebral ventricles: No ventriculomegaly. Paranasal sinuses: Visualized sinuses are unremarkable. No fluid levels. Mastoid air cells: Visualized mastoid air cells are well aerated. Bones/joints: Unremarkable. No acute fracture. Soft tissues: Unremarkable. IMPRESSION: No acute intracranial findings on study limited due to IV contrast. Radiologic Study #2: Attestation: I personally reviewed and interpreted this imaging study as follows: Imaging: CT Scan Radiologist's impression: IMPRESSION: Moderate bilateral ground-glass predominant pulmonary opacities, could indicate edema or atypical infectious etiology. Radiologic Study #3: Attestation: I personally reviewed and interpreted this imaging study as follows: Imaging: X-Ray Radiologist's impression: PROCEDURE INFORMATION: Exam: XR Left Hand Exam date and time: 04/03/2021 10:02 PM Age: 26 years old Clinical indication: Other: Pain TECHNIQUE: Imaging protocol: XR Left hand. Views: 3 or more views. COMPARISON: No relevant prior studies available. FINDINGS: Bones/joints: Normal. Soft tissues: Normal. IMPRESSION: No acute findings Lab Data Lab results reviewed: Yes I reviewed the patient's lab results. ECG Data Attestation: I personally reviewed and interpreted this ECG (s) as follows: HPI General Mode of arrival: EMS . Date/Time Provider Initiated Documentation: 04/03/21 21:51 . Limitations to Documentation: no limitations . Information obtained by: patient and EMS . History of Present Illness 26 year old F presents to the emergency department with the chief complaint of loss of consciousness, described as moderate, and it has been constant. No relieving factors improve symptom(s), No exacerbating factors reported . Patient did receive the following treatments prior to arrival, none Related Data Home Medications Medication Instructions Recorded Confirmed epinephrine [EpiPen 2-Honorio] 0.3 mg IM PRN #1 pack 08/06/12 04/03/21 albuterol sulfate 1.25 mg/3 mL 1.25 mg IH Q4H PRN #90 ml 09/09/19 04/03/21 solution for nebulization albuterol sulfate 90 mcg/actuation 1 - 2 puff INHALATION Q4H PRN #3 02/24/20 04/03/21 aerosol inhaler unit buspirone 15 mg tablet 15 mg PO BID #180 tab 07/31/20 04/03/21 escitalopram oxalate 20 mg tablet 40 mg PO DAILY #180 tab 10/06/20 04/03/21 buprenorphine-naloxone tab SUBLINGUAL 04/03/21 04/03/21 buprenorphine-naloxone tab SUBLINGUAL 04/03/21 04/03/21 naloxone [Narcan] 4 mg INTRANASAL Q3M PRN #2 ea 04/04/21 Previous Rx's Medication Instructions Recorded albuterol sulfate 1.25 mg/3 mL 1.25 mg IH Q4H PRN #90 ml 09/09/19 solution for nebulization albuterol sulfate 90 mcg/actuation 1 - 2 puff INHALATION Q4H PRN #3 02/24/20 aerosol inhaler unit buspirone 15 mg tablet 15 mg PO BID #180 tab 07/31/20 escitalopram oxalate 20 mg tablet 40 mg PO DAILY #180 tab 10/06/20 naloxone [Narcan] 4 mg INTRANASAL Q3M PRN #2 ea 04/04/21 Allergies Allergy/AdvReac Type Severity Reaction Status Date / Time venom-honey bee Allergy Severe Anaphylaxsi Unverified 04/03/21 21:52 [bee venom (honey bee)] s topiramate Allergy Intermediate Skin Rash Unverified 04/03/21 21:52 amino acids [From Chromimin] Allergy Mild Other (See Unverified 04/03/21 21:52 Comment) chromium [From Chromimin] Allergy Mild Other (See Unverified 04/03/21 21:52 Comment) nickel Allergy Mild Rash Unverified 04/03/21 21:52 trazodone Allergy Unknown unknown Verified 04/03/21 21:52 Environmental Allergy Mild Watery Uncoded 04/03/21 21:52 eyes, sneezing General Stated Complaint: OD/Poison JOSE: 2 Review of Systems All systems reviewed & are unremarkable except as noted in HPI and below Constitutional Constitutional: Denies chills, Denies fever(s) and Denies weakness Cardiovascular Cardiovascular: Denies dyspnea Respiratory Respiratory: Denies cough and Denies dyspnea Gastrointestinal Gastrointestinal: Denies abdominal pain, Denies nausea and Denies vomiting Neurologic Neurologic: Denies weakness PFSH All Active Problems (Updated 04/04/21 @ 00:15 by Fitz Ramos MD) Overdose (Acute) Chest pain (Acute) SARS-CoV-2 positive (Acute ~02/2021) Family history of malignant melanoma (Acute[place] [facility] [place] recommend yearly skin checks Unspecified dislocation of right patella, sequela (Acute) [place] 09/01/20 Other tear of medial meniscus, current injury, right knee, sequela (Acute) [facility] 09/01/20 PTSD (post-traumatic stress disorder) (Chronic 06/05/20) [facility] admission 05/24-06/05/2020 Cocaine use disorder (Chronic 06/05/20) [facility] admission 05/24-06/05/2020 Opioid use disorder (Chronic 06/05/20) [facility] admission 05/24-06/05/2020 Anxiety and depression (Chronic) Constipation, chronic (Acute) Chiari malformation type I (Chronic 07/14/17) [facility] [place] consult: no surgery at this time Asthma (Chronic 05/23/13) 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) Dyshidrotic eczema (Chronic 02/24/14) Gastroesophageal reflux disease (Chronic 05/23/13) Hiatal hernia; long-term Rx Dexilant Headache (Chronic 05/23/13) Tobacco use disorder (Chronic) Beta thalassemia (Chronic 03/28/13) Medical History Allergic reaction to bee sting Alopecia (03/28/13) Anxiety and depression Asthma (05/23/13) 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) Chiari malformation type I (07/14/17) [facility] [place] consult: no surgery at this time Cocaine use disorder (06/05/20) [facility] admission 05/24-06/05/2020 Dyshidrotic eczema (02/24/14) Gastroesophageal reflux disease (05/23/13) Hiatal hernia; long-term Rx Dexilant Headache (05/23/13) Opioid use disorder (06/05/20) [facility] admission 05/24-06/05/2020 PTSD (post-traumatic stress disorder) (06/05/20) [facility] admission 05/24-06/05/2020 Tobacco use disorder Ureterolithiasis (11/28/17) (L) UVJ passed spontaneously Varicella infection Age 2 or 3 Surgical History H/O bilateral salpingectomy Family History Grandmother Breast cancer Mother Melanoma Social History Smoking/Tobacco Use Status: Current every day Tobacco Type: cigarettes Smoking risk assessment performed?: Yes Alcohol Intake: never Drug use: Never Substance use type: former substance user Date of last use: opioids, cocaine and opiates Details: has been clean and smoked heroin tonight Number of Children: 2 Pets and animals: No Sexually active: No Current gender identity: female What type of physical activity do you participate in: walking Frequency: daily Do you feel safe at home: Yes Do you feel safe in your relationship?: Yes Exam Const General: no acute distress Orientation: alert HENMT Head: normal to inspection Ears: external ears normal General nose exam: external nose normal Mouth: moist mucous membranes Eyes General: appearance normal, both eyes and all related structures Neck Neck: normal visual inspection Resp Effort & Inspection: normal respiratory effort and able to speak in complete se ntences Cardio Rate: regular rate GI Palpation: soft Skin General skin exam: no rashes or lesions noted Neuro General: patient alert and patient oriented x3 Extrem General: full ROM and capillary refill normal Psych Mental Status: mental status grossly normal Course Vital Signs Vital signs: Vital Signs Temperature 36.7 C 04/03/21 21:44 Pulse 87 04/03/21 21:44 Respiratory Rate 14 04/03/21 21:44 Blood Pressure 147/75 H 04/03/21 21:44 Pulse Oximetry 97 04/03/21 21:44 Temperature 36.7 C 04/03/21 21:44 Temperature Source Temporal Artery Scan 04/03/21 21:44 Pulse 87 04/03/21 21:44 Respiratory Rate 14 04/03/21 21:44 Blood Pressure 147/75 H 04/03/21 21:44 Blood Pressure Position Supine 04/03/21 21:44 Pulse Oximetry 97 04/03/21 21:44 Oxygen Delivery Method Room Air 04/03/21 21:44 Oxygen Flow Rate 0 04/03/21 21:44 Pain Level 10 04/03/21 21:44
[2021-04-03] MEDS: Ketorolac 15 MG/ML VIAL IVP (22:05)
[2021-04-03 22:16] LABS: Abs Immature Grans 0.18 10^3/uL (0.0-0.06); Absolute Basophil Count 0.06 10^3/uL (0.0-0.2); Basophils % 0.3; Eosinophils % 0.9; HGB 11.1 g/dL (11.2-15.7); Immature Grans % 0.9; Lymphocytes % 8.3; MCHC 30.8 % (32.0-36.0); MCV 64.7 fL (80-95); MPV 10.3 fL (8.0-11.0); Monocytes % 4.6; Nucleated RBC 0 %; Platelet Count 240 10^3/uL (130-400); RBC 5.56 10^6/uL (3.93-5.22); RDW 15.5 % (11.7-14.6); RDW-SD 34.5 fL; WBC 21.12 10^3/uL (4.4-10.8)
[2021-04-03 22:22] LABS: Absolute Eosinophil Count 0.19 10^3/uL (0.0-0.7); Absolute Lymphocyte Count 1.75 10^3/uL (1.2-3.4); Absolute Monocyte Count 0.97 10^3/uL (0.1-0.8); Absolute Neutrophil Count 17.95 10^3/uL (1.2-6.7)
[2021-04-03 22:25] LABS: Hypochromasia 2+; Microcytosis 2+
--- NOTE | 2021-04-03 22:30 | DI.CT_ITS ---
Exam(s) CT HEAD WO EXAM: CT HEAD WO CLINICAL HISTORY: head trauma TECHNIQUE: COMPARISON: CT HEAD WITHOUT STROKE PROTOCOL from 03/28/2017 FINDINGS: CT examination of the cranial region was performed following a CT angiogram of the chest. Accordingl y, there is contrast opacification of cerebral structures which could limit evaluation of a subtle in tracranial hemorrhage. No gross mass effect or midline shift is seen. Orbital and temporal bone str uctures appear intact. No calvarial fracture seen. IMPRESSION: No gross abnormality seen on this contrast enhanced examination. Please note that, in the setting of acute head trauma, subtle intracranial hemorrhage might not be vi sible due to the presence of contrast enhancement. RADIATION DOSE DELIVERED: 770.39mGy.cm Total DLP 39.59mGy CTDIvol RADIATION OPTIMIZATION: All CT scans at this facility use at least one of these dose optimization te chniques: automated exposure control; mA and/or kV adjustment per patient size (includes targeted exa ms where dose is matched to clinical indication); or iterative reconstruction.
[2021-04-03 22:38] LABS: ALT 33 U/L (14-59); AST 28 U/L (15-37); Albumin 3.9 g/dL (3.4-5.0); Alkaline Phosphatase 88 U/L (46-116); Anion Gap 9.3 mmol/L (3-11); BUN 13 mg/dL (7-18); CO2 25.7 mmol/L (21.0-32.0); CREATININE 0.9 mg/dL (0.55-1.02); Chloride 97 mmol/L (98-107); Glucose 153 mg/dL (74-106); Magnesium 1.9 mg/dL (1.8-2.4); Potassium 3.4 mmol/L (3.5-5.1); Sodium 132 mmol/L (136-145); Total Protein 7.7 g/dL (6.4-8.2); Troponin I < 50 ng/L (<or=60)
[2021-04-03 22:47] LABS: Bilirubin Negative (Negative); Blood Negative (Negative); Clarity Sl Cloudy (Clear); Glucose 100 mg/dL (Negative); Ketones Trace mg/dL (Negative); Leukocyte Esterase Negative (Negative); Nitrite Negative (Negative); Specific Gravity >= 1.030 (1.005-1.025); Urobilinogen 0.2 EU/dL (Up TO 0.2); pH 5.5 (5-8)
[2021-04-03] MEDS: Omnipaque 350 MG/ML 100 ML BTL IJ (22:58)
[2021-04-03 23:01] LABS: *AMPHETAMINES SCREEN URINE Negative (Negative); *BARBITURATES SCREEN URINE Negative (Negative); *BENZODIAZEPINES SCREEN URINE Negative (Negative); Cannabinoids THC Negative (Negative); Cocaine Screen,Urine Positive (Negative); METHADONE URINE SCREEN Negative (Negative); OPIATES URINE SCREEN Negative (Negative)
--- NOTE | 2021-04-03 23:02 | DI.VRAD_ITS ---
PROCEDURE INFORMATION: Exam: CT Head Without Contrast Exam date and time: 04/03/2021 10:44 PM Age: 26 years old Clinical indication: Injury or trauma; Patient HX: Head trauma TECHNIQUE: Imaging protocol: Computed tomography of the head without contrast. COMPARISON: MRI - BRAIN WO CONTRAST 03/28/2017 5:06 PM FINDINGS: Brain: IV contrast limits evaluation for subtle intracranial hemorrhage. No definite acute intracranial hemorrhage is identified. No mass or mass effect. No acute territorial infarct. Cerebral ventricles: No ventriculomegaly. Paranasal sinuses: Visualized sinuses are unremarkable. No fluid levels. Mastoid air cells: Visualized mastoid air cells are well aerated. Bones/joints: Unremarkable. No acute fracture. Soft tissues: Unremarkable. IMPRESSION: No acute intracranial findings on study limited due to IV contrast. Dictated and Authenticated by: Fitz Mauricio MD. Ordering:RAGINI Byrnes MD
[2021-04-03 23:04] LABS: Bacteria Few HPF (Negative); C & S Indicated? No; Casts Negative LPF (Negative); Crystals Negative HPF (Negative); Epithelial Cells Moderate HPF (Negative); Mucus Negative (Negative); RBC Negative HPF (0-2); WBC Negative HPF (0-5)
--- NOTE | 2021-04-03 23:04 | DI.VRAD_ITS ---
PROCEDURE INFORMATION: Exam: XR Left Hand Exam date and time: 04/03/2021 10:02 PM Age: 26 years old Clinical indication: Other: Pain TECHNIQUE: Imaging protocol: XR Left hand. Views: 3 or more views. COMPARISON: No relevant prior studies available. FINDINGS: Bones/joints: Normal. Soft tissues: Normal. IMPRESSION: No acute findings. Dictated and Authenticated by: Fitz Mauricio MD. Ordering:RAGINI Byrnes MD
[2021-04-03 23:05] LABS: Tricyclic Antidepressants Negative (Negative)
--- NOTE | 2021-04-03 23:05 | DI.VRAD_ITS ---
PROCEDURE INFORMATION: Exam: CTA Chest With Contrast Exam date and time: 04/03/2021 10:01 PM Age: 26 years old Clinical indication: Left-sided; Patient HX: Let sided chest pain TECHNIQUE: Imaging protocol: Computed tomographic angiography of the chest with contrast. 3D rendering (Not supervised by radiologist): MIP and/or 3D reconstructed images were created by the technologist. COMPARISON: CR CHEST 2 VIEWS PA,LAT 08/23/2017 10:50 PM FINDINGS: Pulmonary arteries: Normal. No pulmonary emboli. Aorta: Unremarkable. No aortic aneurysm. No aortic dissection. Lungs: Moderate bilateral ground-glass predominant pulmonary opacities, could indicate edema or atypical infectious etiology. Pleural spaces: Unremarkable. No pneumothorax. No pleural effusion. Heart: Unremarkable. No cardiomegaly. No pericardial effusion. Lymph nodes: Unremarkable. No enlarged lymph nodes. Liver: Hepatic steatosis. Bones/joints: Unremarkable. No acute fracture. Soft tissues: Unremarkable. IMPRESSION: Moderate bilateral ground-glass predominant pulmonary opacities, could indicate edema or atypical infectious etiology. Dictated and Authenticated by: Fitz Mauricio MD. Ordering:RAGINI Byrnes MD
[2021-04-03 23:09] LABS: Source Nasal/Nares
[2021-04-03 23:50] LABS: COVID-19 PCR Negative (Negative)
[2021-04-04 00:09] VITALS: O2SAT 96
== END 2021-04-04 00:19 | disposition home or self-care (01) ==
PROVIDERS: Emergency Provider Emergency Medicine; PCP Nurse Practitioner Family
DX: T40.1X1A Poisoning by heroin, accidental (unintentional), initial encounter (principal); R40.4 Transient alteration of awareness; R07.9 Chest pain, unspecified; M79.642 Pain in left hand; T51.91XA Toxic effect of unspecified alcohol, accidental (unintentional), initial encounter
CPT/HCPCS: 36415; 71275; 80053; 80307; 81025; 87635; 93005; 96374; 99285; 70450; 73130; 81003; 81015; 83735; 84484; 85025; 93010; J1885; J3490

== ENCOUNTER 2021-04-14 15:38 | Outpatient (CLI) | payer MEDICAID, SELFPAY ==
--- NOTE | 2021-04-14 15:30 | DI.RAD_ITS ---
Exam(s) XR RIBS LT W PA LAT CHEST EXAM: XR RIBS LT W PA LAT CHEST CLINICAL HISTORY: r/o aspiration PNA or delayed rib fx s/p CPR R07.9 CHEST PAIN R07.81. TECHNIQUE: 2D digital imaging was performed. COMPARISON: CR XR STERNUM from 12/03/2020 FINDINGS: Lungs are clear. Heart size normal. Mediastinum not widened. No infiltrates. No pneumothorax. No pleural effusions. No fractures evident. Three dedicated views of the left rib cage reveal no obvious fractures nor rib lesions. IMPRESSION: No left rib fractures identified. Lungs are clear. No pneumothorax. DATA REPOSITORY: RADIATION DOSE DELIVERED:
== END 2021-04-14 15:58 ==
PROVIDERS: PCP Nurse Practitioner Family; Visit Provider Nurse Practitioner Family
DX: R07.81 Pleurodynia (principal); R07.9 Chest pain, unspecified
CPT/HCPCS: 71046; 71100

== ENCOUNTER 2021-05-13 02:44 | Outpatient (CLI) | payer MEDICAID, SELFPAY ==
[2021-05-13 13:15] LABS: Abs Immature Grans 0.03 10^3/uL (0.0-0.06); Absolute Basophil Count 0.04 10^3/uL (0.0-0.2); Absolute Eosinophil Count 0.29 10^3/uL (0.0-0.7); Absolute Lymphocyte Count 3.96 10^3/uL (1.2-3.4); Absolute Monocyte Count 0.56 10^3/uL (0.1-0.8); Basophils % 0.5; Eosinophils % 3.3; HCT 33.7 % (36.0-46.0); HGB 10.5 g/dL (11.2-15.7); Immature Grans % 0.3; Lymphocytes % 44.6; MCH 20.1 pg (27.0-33.0); MCHC 31.2 % (32.0-36.0); MCV 64.6 fL (80-95); MPV 10.4 fL (8.0-11.0); Monocytes % 6.3; Nucleated RBC 0 %; Platelet Count 246 10^3/uL (130-400); RBC 5.22 10^6/uL (3.93-5.22); RDW 15.9 % (11.7-14.6); RDW-SD 35.6 fL; WBC 8.88 10^3/uL (4.4-10.8)
[2021-05-13 13:50] LABS: Hemoglobin A1C 5.4 % (<5.7)
[2021-05-13 14:23] LABS: Diff Comment RBC Morph Reviewed
[2021-05-13 14:24] LABS: Hypochromasia 1+; Microcytosis 3+; Poikilocytes 1+
[2021-05-13 14:28] LABS: ALT 58 U/L (14-59); AST 25 U/L (15-37); Albumin 3.8 g/dL (3.4-5.0); Alkaline Phosphatase 84 U/L (46-116); Anion Gap 7.4 mmol/L (3-11); BUN 17 mg/dL (7-18); Bilirubin, Total 0.5 mg/dL (0.2-1.0); CO2 26.6 mmol/L (21.0-32.0); CREATININE 0.7 mg/dL (0.55-1.02); Calcium 8.7 mg/dL (8.5-10.1); Chloride 105 mmol/L (98-107); Glucose 99 mg/dL (74-106); Sodium 139 mmol/L (136-145); TSH (W/Ref FT4) 0.99 uIU/mL (0.36-3.74)
== END 2021-05-13 02:45 | disposition home or self-care (01) ==
LOC: LBO 02:44
PROVIDERS: PCP Nurse Practitioner Family; Visit Provider Nurse Practitioner Family
DX: R79.89 Other specified abnormal findings of blood chemistry (principal); R60.9 Edema, unspecified; R53.83 Other fatigue; R73.01 Impaired fasting glucose; D72.829 Elevated white blood cell count, unspecified
CPT/HCPCS: 36415; 80053; 83036; 84443; 85025; 85610

== ENCOUNTER 2021-06-15 01:42 | Outpatient (CLI) | payer MEDICAID, SELFPAY ==
[2021-06-15 13:40] LABS: Abs Immature Grans 0.06 10^3/uL (0.0-0.06); Absolute Basophil Count 0.05 10^3/uL (0.0-0.2); Absolute Eosinophil Count 0.38 10^3/uL (0.0-0.7); Absolute Lymphocyte Count 4.11 10^3/uL (1.2-3.4); Absolute Monocyte Count 0.65 10^3/uL (0.1-0.8); Absolute Neutrophil Count 5.06 10^3/uL (1.2-6.7); Basophils % 0.5; Eosinophils % 3.7; HCT 33.9 % (36.0-46.0); HGB 10.4 g/dL (11.2-15.7); Immature Grans % 0.6; Lymphocytes % 39.9; MCH 19.8 pg (27.0-33.0); MCHC 30.7 % (32.0-36.0); MCV 64.7 fL (80-95); MPV 10.7 fL (8.0-11.0); Monocytes % 6.3; Nucleated RBC 0 %; Platelet Count 250 10^3/uL (130-400); RBC 5.24 10^6/uL (3.93-5.22); RDW 16.6 % (11.7-14.6); RDW-SD 36.5 fL; WBC 10.31 10^3/uL (4.4-10.8)
[2021-06-15 14:40] LABS: ALT 71 U/L (14-59); AST 26 U/L (15-37); Albumin 3.6 g/dL (3.4-5.0); Alkaline Phosphatase 74 U/L (46-116); Anion Gap 8.9 mmol/L (3-11); BUN 14 mg/dL (7-18); Bilirubin, Total 0.4 mg/dL (0.2-1.0); CO2 26.1 mmol/L (21.0-32.0); CREATININE 0.8 mg/dL (0.55-1.02); Calcium 8.8 mg/dL (8.5-10.1); Chloride 106 mmol/L (98-107); GGT 68 U/L (5-55); Glucose 128 mg/dL (74-106); Potassium 3.9 mmol/L (3.5-5.1); Sodium 141 mmol/L (136-145); Total Protein 6.6 g/dL (6.4-8.2)
[2021-06-15 15:02] LABS: Ferritin 84 ng/mL (8-252); Vitamin B12 562 pg/mL (193-986)
[2021-06-15 23:16] LABS: Iron 81 ug/dL (50-170); Total Iron Binding Capacity 276 ug/dL (250-450); Transferrin Sat 29 % (15-50)
[2021-06-16 10:45] LABS: Hepatitis B Surface Ag Negative (Negative); Hepatitis C Ab w Rflx HCV PCR Negative (Negative)
[2021-06-16 10:55] LABS: Hep B Core Antibody Negative (Negative)
[2021-06-16 11:02] LABS: Hep A Total Ab w Rflx IgM Negative (Negative)
[2021-06-16 11:15] LABS: HIV-1/2 Ag & Ab Screen Negative (Negative)
[2021-06-16 12:57] LABS: HCV RNA Qualitative Undetected (Undetected)
[2021-06-17 00:52] LABS: Vitamin D 25 Total 15.5 ng/mL (30-100)
[2021-06-17 20:57] LABS: HCV Genotype Undetected (Undetected)
[2021-06-18 00:05] LABS: HIV-1 RNA Qualitative, P Undetected (Undetected)
== END 2021-06-15 01:43 | disposition home or self-care (01) ==
LOC: LBO 01:42
PROVIDERS: Nurse Practitioner Gerontology; PCP Nurse Practitioner Family; Visit Provider Nurse Practitioner Family
DX: D64.9 Anemia, unspecified (principal); D56.1 Beta thalassemia; E55.9 Vitamin D deficiency, unspecified
CPT/HCPCS: 80053; 82306; 86704; 86709; 86803; 87340; 87389; 87522; 87535; 82607; 82728; 82977; 83540; 83550; 85025; 87521

== ENCOUNTER 2021-06-24 01:57 | Outpatient (CLI) | payer MEDICAID, SELFPAY ==
--- NOTE | 2021-06-24 07:30 | DI.US_ITS ---
APPROVED REPORT EXAM: Comprehensive 2D, Doppler, and color-flow Echocardiogram Patient Location: Out-Patient [facility] Inspector: Lala Burkett RDCS (AE) Indications: SOB, Peripheral [place], Dyspmea Other Information Study Quality: Adequate Conclusion The left ventricular wall thickness and chamber size. Estimated ejection fraction 60%. Wall motion is normal Normal right ventricular size and systolic function Atria are normal in size There is no structural or hemodynamically significant valvular disease Normal estimated right ventricular systolic pressure 23 mmHg Wall motion Left Ventricle The left ventricle is normal size. The left ventricular systolic function is normal. The left ventric ular ejection fraction is within the normal range. There is normal left ventricular wall thickness. T here is normal LV segmental wall motion. There is no ventricular septal defect visualized. LVEF is 60 %. Right Ventricle The right ventricle is normal size. The right ventricular systolic function is normal. The RVSP is 23 .0mmHg. Atria The left atrium size is normal. The right atrium size is normal. The interatrial septum is intact wit h no evidence for an atrial septal defect. Aortic Valve The aortic valve is normal in structure. Aortic valve is trileaflet. There is no aortic valvular sten osis. No aortic regurgitation is present. Mitral Valve The mitral valve is normal in structure. No evidence of mitral valve stenosis. Mild mitral regurgitat ion. Tricuspid Valve The tricuspid valve is normal in structure. There is no tricuspid valve stenosis. Trace tricuspid reg urgitation. Pulmonic Valve Pulmonic valve is not well visualized. There is no pulmonic valvular stenosis. There is no pulmonic v alvular regurgitation. Great Vessels The aortic root is normal in size. The ascending aorta is normal in size. Aortic arch is normal in ca liber. IVC is normal in size and collapses >50% with inspiration. Pericardium There is no pericardial effusion. 2D Dimensions IVSD d PLAX 1.10 cm F: 0.6-1.0 LV Vol A2C d MOD 192.7 mL LVPW d PLAX 1.10 cm F: 0.6 - 1.0 LV Vol A4C d MOD 148.0 mL LVID d PLAX 5.34 cm F: 3.8 - 5.2 LA vol/ BSA A2C s A-L 46.2 mL/m2 LVDs 3.50 cm F: 2.2 - 3.5 LA vol/ BSA A4C s A-L 25.6 mL/m2 Ao Root d 3.02 cm F: 2.7 - 3.3 LA Vol/ BSA Biplane s A-L 37.1 mL/m2 RA Area A4C 20.62 cm2 LA Area A4C s MOD 19.79 cm2 RA Vol/ BSA A4C s A-L 26.7 mL/m2 LA Area A2C s MOD 28.66 cm2 Ao Asc Diam d 3.06 cm F: 2.3 - 3.1 LV EF A4C MOD 59.9 % LV EF Teichholz 63.0 % LV EF A2C MOD 60.0 % LVEF (Ambrocio's) 58.68 % F: 54 - 74 LV EF Biplane MOD 58.7 % LV Volume 121.59 mL F: 46 - 106 SV 99.78 mL LV Volume Index 52.40 mL/m2 F: 29 - 61 SV Index 42.93 mL/m2 LV Vol Biplane MOD 170.0 mL FS 34.40 % M-Mode TAPSE 2.78 cm (M/F) >1.7 LV Diastology MV E' medial 0.117 (>0.07 m/s) E/A Ratio 1.5 LV E/e MED 9.95 (<14) MV E Vmax 1.17 (0.4-1.3 m/s) MV E' lateral 0.172 (>0.1 m/s) MV A Vmax 0.80 (0.4-1.3 m/s) LV E/e LAT 6.75 (<14) MV E/A Ratio 1.44 MV E/E' medial 9.96 MV E/E' lateral 6.79 Aortic Valve LVOT Area 3.74 cm2 AoV Area Vmax 3.38 cm2 LVOT Vmax 1.49 m/s AoV Area/ BSA (Vmax) 1.45 cm2/m2 LVOT Mean Frederick. 0.87 m/s REGINE Mean Frederick. 2.88 cm2 LVOT Peak Grad 8.9 mmHg REGINE Mean Fredeirck. Index 1.24 cm2/m2 LVOT Mean Grad 3.8 mmHg LVOT VTI 0.321 m LVOT Diam s 2.15 cm AoV Vmax 1.65 m/s Velocity Ratio 0.90 AoV Mean Frederick. 1.13 m/s AoV Peak Grad 10.9 mmHg LVOT SV 120.08 mL AoV Mean Grad 5.8 mmHg AoV VTI 0.347 m AoV Area VTI 3.47 cm2 AoV Area/ BSA (VTI) 1.49 cm/m2 Mitral Valve MV DT 222 (160-240 msec) MV PHT 64 msec MV Area PHT 3.41 cm2 MV VTI 0.410 m MV Area VTI 2.93 (4.0-6.0 cm2) Pulmonary Valve PV Vmax 1.22 (0.5-1.5 m/s) RVOT Peak Gr. 3.10 mmHg PV Peak Grad 6.0 mmHg RVOT Mean Gr. 1.95 mmHg PV Mean Grad 3.9 mmHg RVOT VTI 0.176 m PV VTI 0.287 m RVOT Vmax 0.88 m/s Tricuspid Valve TR Peak Grad 20.0 mmHg TR Vmax 2.24 m/s RA Pressure 3.00 mmHg RVSP (TR) 23.0 mmHg
== END 2021-06-24 02:17 ==
PROVIDERS: PCP Nurse Practitioner Family; Visit Provider Nurse Practitioner Family
DX: R06.09 Other forms of dyspnea (principal); R60.1 Generalized edema
CPT/HCPCS: 93306

== ENCOUNTER 2021-07-29 19:17 | Emergency (ER) | payer MEDICAID, SELFPAY ==
[2021-07-29 19:26] VITALS: BP 111/71; PULSE 85; RESP 18; TEMP 36.7; O2SAT 100
[2021-07-29 19:48] VITALS: BP 146/101
[2021-07-29 21:18] LABS: Bilirubin Negative (Negative); Blood Large (Negative); Clarity Cloudy (Clear); Glucose Negative (Negative); Ketones Negative (Negative); Leukocyte Esterase Small (Negative); Nitrite Negative (Negative); Specific Gravity 1.025 (1.005-1.025); Urobilinogen 0.2 EU/dL (Up TO 0.2)
[2021-07-29 21:37] LABS: WBC >50 HPF (0-5)
[2021-07-29 21:38] LABS: Bacteria Few HPF (Negative); C & S Indicated? Yes; Crystals Negative HPF (Negative); Epithelial Cells Moderate HPF (Negative); Mucus Negative (Negative); Other Cells Few Transitional (Negative); RBC >50 HPF (0-2)
--- NOTE | 2021-07-29 21:47 | W.ED.GENAD ---
Discharge Plan Discharge Details Chief Complaint: Abd Prob Primary Care Provider: Sakina Agustin ED Provider: Imani Botello Home Meds and New Rx's Prescriptions: No Action lidocaine [LC-5] 5 % cream 1 applic topical .BID-QID PRN (Reason: pain) Qty: 45 0RF Rx Instructions: Dispense cream, ointment, or gel aripiprazole [Abilify] 5 mg tablet 5 mg PO DAILY Qty: 90 0RF fluticasone propion-salmeterol [Advair Diskus] 250-50 mcg/dose blister with device 1 inh inhalation BID Qty: 3 3RF polyethylene glycol 3350 [Miralax] 17 gram/dose powder 17 g PO DAILY Qty: 850 0RF multivitamin Tablet 1 tab PO DAILY Qty: 90 3RF furosemide 20 mg tablet 20 mg PO DAILY Qty: 90 0RF Hold Instructions: Home Medication placed on hold at Doctor's office albuterol sulfate 90 mcg/actuation HFA aerosol inhaler 1 - 2 puff inhalation Q4H PRN (Reason: shortness of breath or wheezing) Qty: 3 3RF Rx Instructions: Dispense brand of albuterol inhaler covered by patient's insurance epinephrine [EpiPen 2-Honorio] 0.3 MG/0.3 ML auto-injector 0.3 mg IM PRN Qty: 1 1RF albuterol sulfate 1.25 mg/3 mL solution for nebulization 1.25 mg IH Q4H PRN (Reason: shortness of breath or wheezing) Qty: 90 4RF escitalopram oxalate 20 mg tablet 40 mg PO DAILY Qty: 180 3RF buprenorphine-naloxone 2-0.5 mg tablet, sublingual 3 tab SUBLINGUAL 0RF buprenorphine-naloxone 8-2 mg tablet, sublingual 2 tab SUBLINGUAL 0RF cholecalciferol (vitamin D3) 25 mcg (1,000 unit) tablet 1,000 unit PO DAILY Qty: 90 3RF naloxone [Narcan] 4 mg/actuation spray,non-aerosol 4 mg intranasal Q3M PRN (Reason: opioid overdose) Qty: 2 0RF Rx Instructions: spray 1 dose into ONE nostril; alternate nostrils w each dose until help arrives Medical Decision Making 2129: Patient eloped from the department prior to my evaluation. Urinalysis was resulted and shows large RBCs and WBCs. Small leukocytes greater than 50 WBCs greater than 50 RBCs. Urine is pending for a culture at this time. HPI General Date/Time Provider Initiated Documentation: 07/29/21 19:59. Related Data Home Medications Medication Instructions Recorded Confirmed epinephrine 0.3 mg/0.3 mL 0.3 mg IM PRN #1 pack 08/06/12 07/09/21 injection, auto-injector (EpiPen 2-Honorio) albuterol sulfate 1.25 mg/3 mL 1.25 mg (3 mL) IH Q4H PRN #90 ml 09/09/19 07/09/21 solution for nebulization escitalopram oxalate 20 mg tablet 40 mg PO DAILY #180 tab 10/06/20 07/09/21 naloxone 4 mg/actuation nasal 4 mg INTRANASAL Q3M PRN #2 ea 04/04/21 07/09/21 spray (Narcan) lidocaine 5 % topical cream (LC-5) 1 applic TOPICAL .BID-QID PRN #45 g 04/14/21 07/09/21 albuterol sulfate 90 mcg/actuation 1 - 2 puff INHALATION Q4H PRN #3 04/28/21 07/09/21 aerosol inhaler unit buprenorphine 2 mg-naloxone 0.5 mg 3 tab SUBLINGUAL tab 04/28/21 07/09/21 sublingual tablet buprenorphine 8 mg-naloxone 2 mg 2 tab SUBLINGUAL tab 04/28/21 07/09/21 sublingual tablet aripiprazole 5 mg tablet (Abilify) 5 mg PO DAILY #90 tab 05/14/21 07/09/21 fluticasone 250 mcg-salmeterol 50 1 inh INHALATION BID #3 unit 05/14/21 07/09/21 mcg/dose blistr powdr for inhalation (Advair Diskus) cholecalciferol (vitamin D3) 25 1,000 unit PO DAILY #90 tab 06/17/21 07/09/21 mcg (1,000 unit) tablet furosemide 20 mg tablet 20 mg PO DAILY #90 tab 07/09/21 07/09/21 multivitamin 1 tab PO DAILY #90 tab 07/09/21 07/09/21 polyethylene glycol 3350 17 17 g PO DAILY #850 g 07/09/21 07/09/21 gram/dose oral powder (Miralax) Previous Rx's Medication Instructions Recorded albuterol sulfate 1.25 mg/3 mL 1.25 mg (3 mL) IH Q4H PRN #90 ml 09/09/19 solution for nebulization escitalopram oxalate 20 mg tablet 40 mg PO DAILY #180 tab 10/06/20 naloxone 4 mg/actuation nasal 4 mg INTRANASAL Q3M PRN #2 ea 04/04/21 spray (Narcan) lidocaine 5 % topical cream (LC-5) 1 applic TOPICAL .BID-QID PRN #45 g 04/14/21 albuterol sulfate 90 mcg/actuation 1 - 2 puff INHALATION Q4H PRN #3 04/28/21 aerosol inhaler unit aripiprazole 5 mg tablet (Abilify) 5 mg PO DAILY #90 tab 05/14/21 fluticasone 250 mcg-salmeterol 50 1 inh INHALATION BID #3 unit 05/14/21 mcg/dose blistr powdr for inhalation (Advair Diskus) cholecalciferol (vitamin D3) 25 1,000 unit PO DAILY #90 tab 06/17/21 mcg (1,000 unit) tablet furosemide 20 mg tablet 20 mg PO DAILY #90 tab 07/09/21 multivitamin 1 tab PO DAILY #90 tab 07/09/21 polyethylene glycol 3350 17 17 g PO DAILY #850 g 07/09/21 gram/dose oral powder (Miralax) Allergies Allergy/AdvReac Type Severity Reaction Status Date / Time venom-honey bee Allergy Severe Anaphylaxsi Verified 07/29/21 19:37 [bee venom (honey bee)] s topiramate Allergy Intermediate Skin Rash Verified 07/29/21 19:37 amino acids [From Chromimin] Allergy Mild Other (See Verified 07/29/21 19:37 Comment) chromium [From Chromimin] Allergy Mild Other (See Verified 07/29/21 19:37 Comment) nickel Allergy Mild Rash Verified 07/29/21 19:37 trazodone Allergy Unknown unknown Verified 07/29/21 19:37 Environmental Allergy Mild Watery Uncoded 07/29/21 19:37 eyes, sneezing General Stated Complaint: Abd Prob JOSE: 3 PFSH All Active Problems Vitamin D deficiency (Acute) Heart murmur (Acute) 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 Leg cramps (Acute) Peripheral edema (Acute) Family history of malignant melanoma (Acute) [facility] [place] Derm: recommend yearly skin checks PTSD (post-traumatic stress disorder) (Chronic 06/05/20) [facility] admission 05/2020, again in 04/2021 Cocaine use disorder (Chronic 06/05/20) [facility] admission 05/2020, again in 04/2021 Opioid use disorder (Chronic 06/05/20) [facility] admission 05/2020, again in 04/2021 Anxiety and depression (Chronic) [facility] admission 05/2020, again in 04/2021 Constipation, chronic (Acute) Chiari malformation type I (Chronic 07/14/17) [facility] [place] Neurosurgery consult: no surgery at this time Asthma (Chronic 05/23/13) 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) Gastroesophageal reflux disease (Chronic 05/23/13) Hiatal hernia; long-term Rx Dexilant Headache (Chronic 05/23/13) Tobacco use disorder (Chronic) Beta thalassemia (Chronic 03/28/13) Medical History Dyshidrotic eczema (02/24/14) Other tear of medial meniscus, current injury, right knee, sequela [facility] 09/01/20 Overdose (~04/2021) SARS-CoV-2 positive (~02/2021) Unspecified dislocation of right patella, sequela [place] 09/01/20 Ureterolithiasis (11/28/17) (L) UVJ passed spontaneously Varicella infection Age 2 or 3 Surgical History H/O bilateral salpingectomy Family History Grandmother Breast cancer Mother Melanoma Social History Smoking/Tobacco Use Status: Current every day Tobacco Type: cigarettes Smoking risk assessment performed?: Yes Alcohol Intake: never Drug use: Never Substance use type: former substance user Date of last use: opioids, cocaine and opiates Details: has been clean and smoked heroin tonight Number of Children: 2 Pets and animals: No Sexually active: No Current gender identity: female What type of physical activity do you participate in: walking Frequency: daily Do you feel safe at home: Yes Do you feel safe in your relationship?: Yes Course Vital Signs Vital signs: Vital Signs Temperature 36.7 C 07/29/21 19:26 Pulse 85 07/29/21 19:26 Respiratory Rate 18 07/29/21 19:26 Blood Pressure 111/71 07/29/21 19:26 Pulse Oximetry 100 07/29/21 19:26 Temperature 36.7 C 07/29/21 19:26 Temperature Source Oral 07/29/21 19:26 Pulse 85 07/29/21 19:26 Respiratory Rate 18 07/29/21 19:26 Respiratory Effort 07/29/21 19:34 Blood Pressure 146/101 H 07/29/21 19:48 Blood Pressure Position Supine 07/29/21 19:26 Pulse Oximetry 100 07/29/21 19:26 Oxygen Delivery Method Room Air 07/29/21 19:26 Oxygen Flow Rate 0 07/29/21 19:26 Pain Level 8 07/29/21 19:26 Lab/Test Results Lab/Test Results: 07/29/21 21:03 Urine - Reflex from Ua Urine Culture - Pending Laboratory Tests Range/Units 07/29/21 21:03 Urine Color (Yellow) Yellow Urine Clarity (Clear) Cloudy Urine pH (5-8) 7.0 Ur Specific [place] (1.005-1.025) 1.025 Urine Protein (Negative) mg/dL 100 H Urine Ketones (Negative) mg/dL Negative Urine Blood (Negative) Large H Urine Nitrite (Negative) Negative Urine Bilirubin (Negative) Negative Urine Urobilinogen (Up TO 0.2) EU/dL 0.2 Ur Leukocyte Esterase (Negative) Small H Urine RBC (0-2) HPF >50 H Urine WBC (0-5) HPF >50 H Ur Epithelial Cells (Negative) HPF Moderate Urine Crystals (Negative) HPF Negative Urine Bacteria (Negative) HPF Few Urine Mucus (Negative) Negative Urine Other (Negative) Few Transitional Ur Culture Indicated? Yes Urine Glucose (Negative) mg/dL Negative POC- Test(urine) Negative
== END 2021-07-29 21:28 | disposition left before discharge ==
PROVIDERS: Emergency Provider Registered Nurse Emergency; PCP Nurse Practitioner Family
DX: Z53.21 Procedure and treatment not carried out due to patient leaving prior to being seen by health care provider (principal)
CPT/HCPCS: 80053; 81025; 87077; 81003; 81015; 83735; 85025; 87086; 87186

== ENCOUNTER 2021-08-05 02:24 | Outpatient (CLI) | payer MEDICAID, SELFPAY ==
--- NOTE | 2021-08-05 06:45 | DI.CT_ITS ---
Exam(s) CT RENAL COLIC WO EXAM: CT RENAL COLIC WO INDICATION: Passed two stones,? residual stone,n23,renal colic. COMPARISON: CT CT CHEST PE CTA from 04/03/2021 TECHNIQUE: CT examination was performed without contrast administration. FINDINGS: Images obtained through the lung bases are unremarkable. Note is made of hepatic steatosis, otherwi se visualized portions of liver and spleen appear intact. Visualized portions of the pancreas are unremarkable. Gallbladder and bile ducts are CT normal. Abdominal aorta is of normal diameter. No significant abdominal wall hernia. No significant abdominal or pelvic adenopathy. Adrenals appear normal bilaterally. The kidneys are normal in size and shape. There is no evidence of a renal mass, hydronephrosis, or n ephrolithiasis. No ureteral dilatation or calcification identified. Urinary bladder is unremarkable in appearance. [facility] structures appear intact as visualized. Note is made of a bilateral L5 spondylolysis with mild anterior spondylolisthesis of L5 on S1. IMPRESSION: Hepatic steatosis noted, otherwise negative noncontrast abdominal and pelvic CT. No urinary tract ca lcification or obstruction. RADIATION DOSE DELIVERED: 1,254.56mGy.cm DLP 1,254.56mGy.cm Total DLP !Error CTDIvol RADIATION OPTIMIZATION: All CT scans at this facility use at least one of these dose optimization te chniques: automated exposure control; mA and/or kV adjustment per patient size (includes targeted exa ms where dose is matched to clinical indication); or iterative reconstruction.
== END 2021-08-05 02:44 ==
PROVIDERS: PCP Nurse Practitioner Family; Visit Provider Family Medicine
DX: N23 Unspecified renal colic (principal); K76.0 Fatty (change of) liver, not elsewhere classified; Z87.442 Personal history of urinary calculi
CPT/HCPCS: 74176

== ENCOUNTER → 2021-08-12 00:35 | Outpatient (CLI) | payer MEDICAID, SELFPAY ==
--- NOTE | 2021-08-12 07:45 | DI.US_ITS ---
Exam(s) US ABDOMEN EXAM: US ABDOMEN CLINICAL HISTORY: ?fatty liver,elevated lft's,r79.89 TECHNIQUE: Ultrasound performed using standard protocol. COMPARISON: US US ECHOCARDIOGRAM from 06/24/[address] RENAL COLIC WO from 08/05/2021 FINDINGS: There is mild hepatomegaly, hepatic parenchyma is of increased echogenicity and shows decreased throu gh transmission, consistent with hepatic steatosis. Some dependent portions of the liver are nonvisu alized due to body habitus and overlying bowel gas as well as decreased through penetration.. No evidence of cholelithiasis or biliary dilatation. Unremarkable appearance of the pancreas as visu alized although pancreas is partially obscured by overlying bowel gas. Spleen and kidneys are unremarkable in appearance, no hydronephrosis or nephrolithiasis. Abdominal aorta and IVC are of normal diameter. IMPRESSION: Hepatomegaly and hepatic steatosis, no focal abnormality seen. Please note that hepatic parenchyma i s incompletely visualized. DATA REPOSITORY:
== END ==
PROVIDERS: PCP Nurse Practitioner Family; Visit Provider Nurse Practitioner Family
DX: K76.0 Fatty (change of) liver, not elsewhere classified (principal); R16.0 Hepatomegaly, not elsewhere classified; R79.89 Other specified abnormal findings of blood chemistry
CPT/HCPCS: 76700

== ENCOUNTER 2021-08-20 02:21 | Outpatient (CLI) | payer MEDICAID, SELFPAY ==
[2021-08-20 10:21] LABS: Creatine Kinase 129 U/L (26-192)
[2021-08-21 16:10] LABS: Smooth Muscle Ab Screen Negative (Negative)
[2021-08-23 12:47] LABS: Albumin 58.2 % (55.8-66.1); Total Protein 6.9 g/dL (6.3-8.2)
[2021-08-23 15:11] LABS: ANA Interpretation Positive (Negative); ANA Titer Pattern 1:160 Speckled
[2021-08-23 16:07] LABS: Liver/Kidney Microsome Type 1 <5.0 U
== END 2021-08-20 02:22 | disposition home or self-care (01) ==
LOC: LBO 02:21
PROVIDERS: PCP Nurse Practitioner Family
DX: K76.0 Fatty (change of) liver, not elsewhere classified (principal); K52.9 Noninfective gastroenteritis and colitis, unspecified
CPT/HCPCS: 36415; 82550; 82784; 83516; 84165; 86038; 86255

== ENCOUNTER 2021-09-15 02:20 | Outpatient (CLI) | payer MEDICAID, SELFPAY | END 2021-09-15 02:21 | disposition home or self-care (01) | LOC: LBO 02:20 | PROVIDERS: PCP Nurse Practitioner Family; Visit Provider Nurse Practitioner Adult Health ==

== ENCOUNTER 2022-01-12 02:15 | Outpatient (CLI) | payer MEDICAID, SELFPAY ==
[2022-01-12 15:33] LABS: Abs Immature Grans 0.05 10^3/uL (0.0-0.06); Absolute Basophil Count 0.05 10^3/uL (0.0-0.2); Absolute Eosinophil Count 0.38 10^3/uL (0.0-0.7); Absolute Lymphocyte Count 3.57 10^3/uL (1.2-3.4); Basophils % 0.5; Eosinophils % 3.6; HCT 34.5 % (36.0-46.0); HGB 10.9 g/dL (11.2-15.7); Immature Grans % 0.5; Lymphocytes % 33.5; MCH 20.7 pg (27.0-33.0); MCHC 31.6 % (32.0-36.0); MCV 66 fL (80-95); MPV 10.9 fL (8.0-11.0); Monocytes % 4.7; Neutrophils % 57.2; Platelet Count 232 10^3/uL (130-400); RBC 5.26 10^6/uL (3.93-5.22); RDW 15.1 % (11.7-14.6); RDW-SD 34.5 fL; WBC 10.65 10^3/uL (4.4-10.8)
[2022-01-12 16:35] LABS: ALT 89 U/L (14-59); AST 50 U/L (15-37); Albumin 3.6 g/dL (3.4-5.0); Alkaline Phosphatase 88 U/L (46-116); Anion Gap 9.2 mmol/L (3-11); BUN 12 mg/dL (7-18); Bilirubin, Total 0.4 mg/dL (0.2-1.0); CO2 26.8 mmol/L (21.0-32.0); CREATININE 0.8 mg/dL (0.55-1.02); Chloride 102 mmol/L (98-107); Estimated GFR 102.86 (mL/min/1.73m2); GGT 103 U/L (5-55); Glucose 135 mg/dL (74-106); Potassium 3.6 mmol/L (3.5-5.1); Sodium 138 mmol/L (136-145); Total Protein 7.5 g/dL (6.4-8.2)
[2022-01-14 09:00] LABS: Hepatitis C Ab w Rflx HCV PCR Negative (Negative)
[2022-01-14 09:27] LABS: Hepatitis B Surface Ag Negative (Negative)
[2022-01-14 09:45] LABS: HIV-1/2 Ag & Ab Screen Negative (Negative)
[2022-01-14 09:51] LABS: Hep B Core Antibody Negative (Negative)
[2022-01-14 10:05] LABS: Hep A Total Ab w Rflx IgM Negative (Negative)
[2022-01-14 11:42] LABS: HBs Antibody, Quant 3.5 mIU/mL (See Note); Hepatitis B Surface Ab Negative (See Note)
[2022-01-14 13:00] LABS: HCV RNA Qualitative Undetected (Undetected)
[2022-01-15 17:07] LABS: HCV Genotype Undetected (Undetected)
== END 2022-01-12 02:16 | disposition home or self-care (01) ==
LOC: LBO 02:15
PROVIDERS: PCP Nurse Practitioner Family; Visit Provider Nurse Practitioner Gerontology
DX: F11.20 Opioid dependence, uncomplicated (principal); Z11.4 Encounter for screening for human immunodeficiency virus [HIV]; Z11.59 Encounter for screening for other viral diseases
CPT/HCPCS: 36415; 80053; 86704; 86706; 86709; 86803; 87340; 87389; 87522; 82977; 85025; 87521

== ENCOUNTER 2022-06-07 15:05 | Outpatient (REF) | payer MEDICAID, SELFPAY ==
[2022-06-07 22:19] LABS: ESR 17 mm/hr (0-20)
[2022-06-07 22:20] LABS: Abs Immature Grans 0.08 10^3/uL (0.0-0.06); Absolute Basophil Count 0.07 10^3/uL (0.0-0.2); Absolute Eosinophil Count 0.26 10^3/uL (0.0-0.7); Absolute Lymphocyte Count 2.92 10^3/uL (1.2-3.4); Absolute Monocyte Count 0.68 10^3/uL (0.1-0.8); Basophils % 0.6; Eosinophils % 2.2; HCT 34.4 % (36.0-46.0); HGB 10.8 g/dL (11.2-15.7); Immature Grans % 0.7; Lymphocytes % 24.5; MCH 21.1 pg (27.0-33.0); MCHC 31.4 % (32.0-36.0); MCV 67 fL (80-95); MPV 11.5 fL (8.0-11.0); Monocytes % 5.7; Neutrophils % 66.3; Platelet Count 207 10^3/uL (130-400); RBC 5.13 10^6/uL (3.93-5.22); RDW 17.2 % (11.7-14.6); RDW-SD 36.1 fL; WBC 11.92 10^3/uL (4.4-10.8)
[2022-06-07 22:33] LABS: ALT 86 U/L (14-59); AST 38 U/L (15-37); Albumin 3.6 g/dL (3.4-5.0); Alkaline Phosphatase 88 U/L (46-116); Anion Gap 6.6 mmol/L (3-11); BUN 13 mg/dL (7-18); Bilirubin, Total 0.4 mg/dL (0.2-1.0); C-Reactive Protein 1.11 mg/dL (0.0-0.3); CO2 25.4 mmol/L (21.0-32.0); CREATININE 0.7 mg/dL (0.55-1.02); Calcium 8.8 mg/dL (8.5-10.1); Chloride 106 mmol/L (98-107); Estimated GFR 119.99 (mL/min/1.73m2); Glucose 104 mg/dL (74-106); Potassium 4.2 mmol/L (3.5-5.1); Sodium 138 mmol/L (136-145); Total Protein 6.8 g/dL (6.4-8.2)
[2022-06-07 22:38] LABS: Diff Comment Agrees w/ Instrument; Microcytosis 2+
== END 2022-06-07 15:06 | disposition home or self-care (01) ==
LOC: LBN 15:05
PROVIDERS: PCP Nurse Practitioner Family; Visit Provider Nurse Practitioner Family
DX: L98.9 Disorder of the skin and subcutaneous tissue, unspecified (principal)
CPT/HCPCS: 80053; 85652; 85025; 86140

== ENCOUNTER 2022-08-11 11:36 | Outpatient (CLI) | payer MEDICAID, SELFPAY ==
[2022-08-11 12:40] LABS: Abs Immature Grans 0.03 10^3/uL (0.0-0.06); Absolute Basophil Count 0.06 10^3/uL (0.0-0.2); Absolute Eosinophil Count 0.26 10^3/uL (0.0-0.7); Absolute Lymphocyte Count 3.45 10^3/uL (1.2-3.4); Absolute Monocyte Count 0.52 10^3/uL (0.1-0.8); Absolute Neutrophil Count 4.47 10^3/uL (1.2-6.7); Basophils % 0.7; HCT 35.3 % (36.0-46.0); HGB 11.1 g/dL (11.2-15.7); Immature Grans % 0.3; Lymphocytes % 39.2; MCH 20.7 pg (27.0-33.0); MCHC 31.4 % (32.0-36.0); MCV 66 fL (80-95); MPV 10.7 fL (8.0-11.0); Monocytes % 5.9; Neutrophils % 50.9; Platelet Count 234 10^3/uL (130-400); RBC 5.35 10^6/uL (3.93-5.22); RDW 15.8 % (11.7-14.6); RDW-SD 35.6 fL; WBC 8.79 10^3/uL (4.4-10.8)
[2022-08-11 12:46] LABS: ESR 20 mm/hr (0-20)
[2022-08-11 12:58] LABS: Hemoglobin A1C 5.4 % (<5.7)
[2022-08-11 13:54] LABS: ALT 127 U/L (14-59); AST 61 U/L (15-37); Albumin 3.9 g/dL (3.4-5.0); Alkaline Phosphatase 82 U/L (46-116); Anion Gap 13.5 mmol/L (3-11); BUN 10 mg/dL (7-18); Bilirubin, Total 0.5 mg/dL (0.2-1.0); CO2 23.5 mmol/L (21.0-32.0); CREATININE 0.9 mg/dL (0.55-1.02); Calcium 9.2 mg/dL (8.5-10.1); Calculated LDL 80 mg/dL (<100); Chloride 102 mmol/L (98-107); Cholesterol 177 mg/dL (<200); Estimated GFR 88.75 (mL/min/1.73m2); Glucose 121 mg/dL (74-106); HDL Cholesterol 37 mg/dL (40-60); Potassium 3.7 mmol/L (3.5-5.1); Sodium 139 mmol/L (136-145); TSH (W/Ref FT4) 1.92 uIU/mL (0.36-3.74); Total Protein 7.9 g/dL (6.4-8.2); Triglyceride 303 mg/dL (<150)
[2022-08-11 14:06] LABS: Vitamin D 25 Total 21.9 ng/mL (30-100)
[2022-08-11 14:19] LABS: Diff Comment RBC Morph Reviewed; Hypochromasia 1+; Microcytosis 2+; Polychromasia Present
[2022-08-11 14:20] LABS: Poikilocytes 1+
[2022-08-15 11:00] LABS: IgA 136 mg/dL (85-499); Interpretation (See Note); Tissue Transglutaminase IgA <1.2 U/mL (<4.0)
== END 2022-08-11 11:37 | disposition home or self-care (01) ==
LOC: LBO 11:37
PROVIDERS: PCP Nurse Practitioner Family; Visit Provider Nurse Practitioner Family
DX: R73.01 Impaired fasting glucose (principal); E78.5 Hyperlipidemia, unspecified; R53.83 Other fatigue; F41.8 Other specified anxiety disorders; R60.0 Localized edema; E55.9 Vitamin D deficiency, unspecified; M54.59 Other low back pain; K52.9 Noninfective gastroenteritis and colitis, unspecified; K76.0 Fatty (change of) liver, not elsewhere classified; K75.81 Nonalcoholic steatohepatitis (NASH); Z51.81 Encounter for therapeutic drug level monitoring; Z79.899 Other long term (current) drug therapy
CPT/HCPCS: 36415; 80053; 80061; 82306; 82784; 83516; 85652; 83036; 84443; 85025

== ENCOUNTER 2022-08-19 00:56 | Outpatient (CLI) | payer MEDICAID, SELFPAY ==
--- NOTE | 2022-08-19 08:45 | DI.RAD_ITS ---
Exam(s) XR LUMBAR SPINE COMPLETE EXAM: XR LUMBAR SPINE COMPLETE CLINICAL HISTORY: ? bony abnormality; h/o drug use,LOW BACK PAIN, M54.50. TECHNIQUE: 2D digital imaging was performed of the lumbar spine. Six images were obtained. AP, lat eral, right oblique, left oblique and L5-S1 spot views were obtained. COMPARISON: CT CT RENAL COLIC WO from 08/05/2021 FINDINGS: BONES: No fracture or destructive lesion. Small endplate osteophytes are seen at T12-L1. No facet hyp ertrophy identified. DISKS: There is narrowing of the T12-L1 disc space. ALIGNMENT: Lumbar spinal alignment is within normal limits. There is L5 spondylolysis and grade 1 spo ndylolisthesis of L5 on S1. SOFT TISSUE: Normal. IMPRESSION: 1. Mild degenerative changes at T12-L1. 2. L5 spondylolysis and grade 1 spondylolisthesis of L5 on S1. DATA REPOSITORY: RADIATION DOSE DELIVERED:
== END 2022-08-19 01:16 ==
LOC: DI 00:56
PROVIDERS: PCP Nurse Practitioner Family; Visit Provider Nurse Practitioner Family
DX: M47.895 Other spondylosis, thoracolumbar region (principal)
CPT/HCPCS: 72110

== ENCOUNTER 2022-08-19 13:12 | Outpatient (REF) | payer MEDICAID, SELFPAY ==
[2022-08-19 17:41] LABS: PROTEIN < 6.0 mg/dL (0.0-11.9); Total Volume 3785 ml
== END 2022-08-19 13:13 | disposition home or self-care (01) ==
LOC: LBN 13:12
PROVIDERS: PCP Nurse Practitioner Family; Visit Provider Nurse Practitioner Family
DX: F41.8 Other specified anxiety disorders (principal); R60.0 Localized edema; R53.83 Other fatigue; K76.0 Fatty (change of) liver, not elsewhere classified
CPT/HCPCS: 82306; 81050; 84155

== ENCOUNTER 2022-11-10 02:34 | Outpatient (CLI) | payer MEDICAID, SELFPAY ==
[2022-11-10 12:07] LABS: Vitamin D 25 Total 20.2 ng/mL (30-100)
== END 2022-11-10 02:35 | disposition home or self-care (01) ==
LOC: LBO 02:34
PROVIDERS: PCP Nurse Practitioner Family; Referring Provider Nurse Practitioner Family; Visit Provider Nurse Practitioner Family
DX: E55.9 Vitamin D deficiency, unspecified (principal)
CPT/HCPCS: 36415; 82306

== ENCOUNTER → 2022-11-18 00:28 | Outpatient (CLI) | payer MEDICAID, SELFPAY ==
--- NOTE | 2022-11-18 07:06 | DI.US_ITS ---
Exam(s) US EXTREMITY VENOUS BI EXAM: US EXTREMITY VENOUS BI CLINICAL HISTORY: BILAT LEG PAIN, M79.604,M79.605,SWELLING,R60.9,? CLOT OR BAKERS CYST TECHNIQUE: Grayscale, color, and doppler imaging of the deep venous system of both lower extremities was performed. COMPARISON: US US ABDOMEN from 08/12/2021 FINDINGS: There is no evidence of intraluminal thrombus and there is normal compression and augmentation demons trated within the common femoral veins, femoral veins, and popliteal veins of both lower extremities. In the calves the interrogated veins also exhibit normal compression/ augmentation properties. The greater saphenous veins also appear patent as do the saphenofemoral junctions bilaterally.. IMPRESSION: 1. No ultrasound evidence of DVT in either lower extremity. DATA REPOSITORY:
== END ==
PROVIDERS: PCP Nurse Practitioner Family; Visit Provider Nurse Practitioner Family
DX: M79.604 Pain in right leg (principal); M79.605 Pain in left leg
CPT/HCPCS: 93970

== ENCOUNTER 2022-11-22 04:49 | Outpatient (CLI) | payer MEDICAID, SELFPAY ==
[2022-11-22 13:51] LABS: Vitamin D 25 Total 21.3 ng/mL (30-100)
[2022-11-22 13:55] LABS: Vitamin B12 619 pg/mL (193-986)
== END 2022-11-22 04:50 | disposition home or self-care (01) ==
LOC: LBO 04:49
PROVIDERS: PCP Nurse Practitioner Family; Visit Provider Nurse Practitioner Family
DX: E55.9 Vitamin D deficiency, unspecified (principal); G62.9 Polyneuropathy, unspecified; R20.0 Anesthesia of skin
CPT/HCPCS: 36415; 82306; 82607

== ENCOUNTER 2023-06-08 12:00 | Outpatient (CLI) | payer MEDICAID, SELFPAY ==
--- NOTE | 2023-06-08 06:00 | DI.RAD_ITS ---
Exam(s) XR PAIN CLINIC LUMBAR SP 2V EXAM: XR PAIN CLINIC LUMBAR SP 2V CLINICAL HISTORY: DX: Lumbar radiculopathy. TECHNIQUE: Fluoroscopy was provided for the referring physician for guidance with performing pain cl inic injection procedure. COMPARISON: No exams were available for comparison FINDINGS: Please see procedure note for details. Fluoro time: 50.0 seconds RADIATION DOSE DELIVERED: Ka,r=58.7 mGy
[2023-06-08 12:10] VITALS: BP 155/92; PULSE 75; RESP 20; TEMP 36.6; O2SAT 97
--- NOTE | 2023-06-08 12:49 | PDOC.PAIN ---
Date of service: 06/08/23 Time of Service: 12:49 Pain Managment Procedure Note Procedure Note Procedure Note: PROCEDURE NOTE RIGHT L5 TRANSFORAMINAL EPIDURAL STEROID INJECTION Chief Complaint: RIGHT leg pain. Date of Service: June 08, 2023 Patient: Nanci Martin Provider: Vicente Swain DO, MPH Nanci Martin has been [facility] for a transforaminal epidural steroid injection. Pre-operative diagnosis: Lumbosacral Radiculopathy Post-operative diagnosis: Same Pre-Procedure Pain: VAS= 10/10 Comments: I previously evaluated the patient in our clinic and their symptoms remain the same as they were at that time. Nanci was interviewed and the medical record reviewed. There were no medical, pharmacologic, radiographic or other structural contraindications to attempting a fluoroscopically-guided transforaminal lumbar epidural steroid injection. The risks, benefits, and potential side effects were reviewed with the patient. Risks include, but are not limited to, [id number] headache, infection, bleeding, nerve injury, spinal cord damage, allergic reaction, possible increase in symptoms over the ensuing 24 to 48 hours, paralysis, and . The patient appeared to understand, questions were answered to the patient?s satisfaction and the patient agreed to proceed. Once I obtained informed verbal consent, the printed consent form was signed by the patient and myself. A standard time-out procedure was performed. Nanci was placed in the prone position on the fluoroscopy table and automated blood pressure cuff, three lead EKG, and pulse oximeter were applied. The skin entry point for entering/approaching the right L5 space for the transforaminal epidural steroid injection was marked. Following thorough chlorhexadine preparation of the skin and draping, 2 ml of 1% lidocaine was infiltrated into the skin over the entry point and subcutaneous tissues. Under fluoroscopic guidance, in ipsilateral oblique view, a co-axial approach using a 5 22G spinal needle was advanced to the base of the right L5 pedicle. The needle was advanced to the superio-posterior aspect of the neural foramen under lateral view. Oblique and AP views were rechecked. Under AP and lateral views, 1 ml of Omnipaque-240 was injected while visualized with fluoroscopy. There was no evidence of intravascular or intrathecal uptake, the epidural space was delineated. Next 1.5 ml of preservative-free Dexamethasone (10 mg/ml) was injected after negative aspiration. This was followed by 1 ml of preservative-free 1% lidocaine. (49 mls of Omnipaque-240 was wasted) There was no unusual discomfort expressed by Nanci. The needle was withdrawn without difficulty. Nanci was observed and was without hemodynamic, neurologic, or allergic reactions.? Fluoroscopic images were digitally archived. Nnaci's vital signs were stable throughout the procedure and were as recorded in the docflowsheet by the nursing staff.? If given, dosages of intravenous drugs for anxiolysis and analgesia were documented in MAR. Follow up plans and appointments were discussed with Nanci. Post procedure instruction was given as documented in nursing records and having met discharge criteria Nanci was [facility]. COMMENTS: Post-procedure pain: VAS= 0/10. Nanci to contact [facility] as needed. If at least 50% improvement in pain and/or function for at least 3 months is achieved, this procedure can be repeated. I personally performed this entire procedure. VICENTE SWAIN DO, MPH ABPMR-subspecialty board certification in Pain Medicine [facility]
[2023-06-08 12:53] VITALS: BP 159/98; PULSE 73; RESP 14; O2SAT 97
[2023-06-08] MEDS: Nerve Block Tray 1 EACH MC (12:54)
[2023-06-08] MEDS: Dexamethasone Sod. Phos./Pres-Free 10 MG/ML VIAL IJ (12:54)
[2023-06-08] MEDS: Omnipaque 240 MG/ML 50 ML BTL IJ (12:55)
== END 2023-06-08 12:01 | disposition home or self-care (01) ==
LOC: PC 12:00
PROVIDERS: PCP Nurse Practitioner Family; Visit Provider Preventive Medicine Occupational Medicine
DX: M54.17 Radiculopathy, lumbosacral region (principal)
CPT/HCPCS: 00123; 64483; 72100; J1100; Q9967